=== PATIENT | female | born 1965 | race Caucasian/White ===

== ENCOUNTER → 2021-07-01 15:02 | Outpatient (BNVA) | payer OTHER, SELFPAY | PROVIDERS: PCP Nurse Practitioner Family; Visit Provider Psychiatry & Neurology Neurology | DX: G51.32 Clonic hemifacial spasm, left (principal); Z79.899 Other long term (current) drug therapy | CPT/HCPCS: 64612; J0585 ==

== ENCOUNTER → 2021-10-07 10:03 | Outpatient (BNVA) | payer OTHER, SELFPAY | PROVIDERS: Visit Provider Psychiatry & Neurology Neurology | DX: G51.32 Clonic hemifacial spasm, left (principal) | CPT/HCPCS: 64612; J0585 ==

== ENCOUNTER → 2022-01-10 13:07 | Outpatient (BNVA) | payer BC, SELFPAY | PROVIDERS: Visit Provider Psychiatry & Neurology Neurology | DX: G51.32 Clonic hemifacial spasm, left (principal) | CPT/HCPCS: 64612; J0585 ==

== ENCOUNTER → 2022-04-21 15:54 | Outpatient (BNVA) | payer BC, SELFPAY | PROVIDERS: Visit Provider Psychiatry & Neurology Neurology | DX: G51.32 Clonic hemifacial spasm, left (principal) | CPT/HCPCS: 64612; J0585 ==

== ENCOUNTER → 2022-07-31 15:27 | Outpatient (BNVA) | payer BC, SELFPAY | PROVIDERS: Visit Provider Psychiatry & Neurology Neurology | DX: G51.32 Clonic hemifacial spasm, left (principal) | CPT/HCPCS: 64612; J0585 ==

== ENCOUNTER 2022-11-19 15:11 | Outpatient (AMB) | payer BC, SELFPAY ==
--- NOTE | 2022-11-19 15:11 | A.OFFVIS_ITS ---
Intake Vital Signs 11/19/22 15:12 Height 5 ft 4 in Weight 143 lb BMI 24.5 BP 118/82 Blood Pressure Location Rt brachial Position Sitting Pulse 58 Pulse Source Pulse Oximeter Pulse Oximetry (%) 98 Oxygen Delivery Method Room Air Intake Visit Reasons: botox-CONFIRMED Intake Note: Patient presents for botox Allergies No Known Allergies Allergy (Verified 11/19/22 15:14) Medication List - Last Reconciled 11/19/22 by Courtney Locke MD cholecalciferol (vitamin D3) 10 mcg PO DAILY gabapentin 100 mg PO BEDTIME magnesium 200 mg PO DAILY meloxicam 15 mg PO DAILY onabotulinumtoxinA (Botox) 100 units IM [id number] HPI HPI Comments History of Present Illness Details ? 57y/o female comes for treatment with botox . ??? side effects were explained again and patient agreed to the procedure . - side effects include increased weakness , droopy eyelids weakness of facial muscles etc. ??? Botulinum toxin type A lot no C [id number] expiration Jan 2025 was diluted with 1 cc of normal saline at a concentration of 10units in 0.1cc. ??? Muscles injected - L lateral canthus 15 units ??? R lateral canthus 5 units ??? Left upper eyelid laterally - 2.5units ??? Left lateral lower eyelid - 10 units ??? Aryan manual plate filler 5 units each ??? Procerus 5 units ? Total used 40units ??? Discarded-60 units PFSH Medical History Chronic headaches Scoliosis Surgical History H/O: History of carpal tunnel surgery Family History Father Cancer HTN (hypertension) Hyperlipidemia Mother HTN (hypertension) Social History Household Members: Spouse and Family Household Members Other:: Spouse, child, dog Alcohol intake: current Alcohol intake frequency: a few times a week Alcohol type: wine Patient Tobacco Use Status: Never used Tobacco Physical Exam Vital Signs: Last Vital Signs Pulse 58 11/19/22 15:12 BP 118/82 11/19/22 15:12 Pulse Ox 98 11/19/22 15:12 Oxygen Delivery Method Room Air 11/19/22 15:12 BMI result Body Mass Index 24.5 HEENT Other: Mild left hemifacial spasm Office Procedures Botulinum toxin Injection 10133 - Facial Nerve Procedure code (CPT) selection complete Office Meds onabotulinumtoxinA Performing Provider: Courtney Locke MD Administered by: Courtney Locke MD on 11/19/22 15:34 Dose Route Admin Location Lot Number Expiration Date NDC Aircraft Engine Cylinder Mechanic 100 unit subcut [id number] 01/11/25 0929-3968-46 ALLERGAN/BOTOX Comments: see hpi Assessment & Plan Assessment & Plan (1) Hemifacial spasm of left side of face: Code(s): G51.32 - Clonic hemifacial spasm, left Plan Patient tolerated the procedure well. She will call with any side effects. Orders: Orders AMB Botulinum toxin Injection - Patient Supplied Today G51.32 - Clonic hemifacial spasm, left Coding Level of Care Code Est Pt Level 1 (59246) Diagnoses Hemifacial spasm of left side of face G51.32 CPT Codes Botox Injection - Botox 2: 04725 - Facial Nerve ([id number])
[2022-11-19 15:12] VITALS: BP 118/82; PULSE 58; O2SAT 98; BMI 24.5
== END 2022-11-19 15:41 | disposition home or self-care (01) ==
PROVIDERS: Visit Provider Psychiatry & Neurology Neurology
DX: G51.32 Clonic hemifacial spasm, left (principal)
CPT/HCPCS: 64612

== ENCOUNTER → 2022-11-19 15:11 | Outpatient (BNVA) | payer BC, SELFPAY | PROVIDERS: Visit Provider Psychiatry & Neurology Neurology | DX: G51.32 Clonic hemifacial spasm, left (principal) | CPT/HCPCS: 64612; 99211; J0585 ==

== ENCOUNTER 2023-03-02 07:27 | Outpatient (AMB) | payer OTHER, SELFPAY ==
--- NOTE | 2023-03-02 07:32 | A.OFFVIS_ITS ---
Intake Vital Signs 03/02/23 07:35 Weight 144 lb BP 140/92 H Blood Pressure Location Rt brachial Position Sitting Pulse 85 Pulse Source Pulse Oximeter Pulse Oximetry (%) 99 Oxygen Delivery Method Room Air Intake Visit Reasons: botox-Confirmed Intake Note: Botox injection, patient is asking for a refill on the Gabapentin. Application Developer Manager Required: No Allergies No Known Allergies Allergy (Verified 03/02/23 07:32) Medication List - Last Reconciled 03/02/23 by Courtney Locke MD cholecalciferol (vitamin D3) 10 mcg PO DAILY gabapentin 100 mg PO BEDTIME magnesium 200 mg PO DAILY meloxicam 15 mg PO DAILY onabotulinumtoxinA (Botox) 100 units IM [id number] HPI HPI Comments History of Present Illness Details ? 57y/o female comes for treatment with botox . ??? side effects were explained again and patient agreed to the procedure . - side effects include increased weakness , droopy eyelids weakness of facial muscles etc. ??? Botulinum toxin type A lot no C [id number] expiration June 2025 was diluted with 1 cc of normal saline at a concentration of 10units in 0.1cc. ??? Muscles injected - L lateral canthus 15 units ??? R lateral canthus 5 units ??? Left upper eyelid laterally - 2.5units ??? Left lateral lower eyelid - 10 units ? Procerus 5 units ? Total used 30units ??? Discarded-70 units PFSH Medical History Scoliosis Chronic headaches Surgical History History of carpal tunnel surgery H/O: Family History Father Cancer HTN (hypertension) Hyperlipidemia Mother HTN (hypertension) Social History Household Members: Spouse and Family Household Members Other:: Spouse, child, dog Alcohol intake: current Alcohol intake frequency: a few times a week Alcohol type: wine Patient Tobacco Use Status: Never used Tobacco Physical Exam Vital Signs: Last Vital Signs Pulse 85 03/02/23 07:35 BP 140/92 H 11/20/23 07:35 Pulse Ox 99 03/02/23 07:35 Oxygen Delivery Method Room Air 03/02/23 07:35 HEENT Other: Mild left hemifacial spasm Office Procedures Botulinum toxin Injection 31615 - Facial Nerve Procedure code (CPT) selection complete Office Meds onabotulinumtoxinA 100 unit solution for injection Performing Provider: Courtney Locke MD [place] [facility] [place] [facility] Administered by: Courtney Locke MD on 03/02/23 15:38 Dose Route Admin Location Dispensed Lot Number Expiration Date [facility] Flatbed Stitcher 40 unit subcut 100 units [id number] 06/11/25 6399-7657-70 ALLERGAN/BOTOX Comments: see hpi Assessment & Plan Assessment & Plan (1) Hemifacial spasm of left side of face: Code(s): G51.32 - Clonic hemifacial spasm, left Plan Patient tolerated the procedure well. She will call with any side effects. Orders: Orders AMB Botulinum toxin Injection Today G51.32 - Clonic hemifacial spasm, left Coding Level of Care Code Est Pt Level 1 (76878) Diagnoses Hemifacial spasm of left side of face G51.32 CPT Codes Botox Injection - Botox 2: 22487 - Facial Nerve ([id number])
[2023-03-02 07:35] VITALS: BP 140/92; PULSE 85; O2SAT 99
== END 2023-03-02 08:37 | disposition home or self-care (01) ==
PROVIDERS: Visit Provider Psychiatry & Neurology Neurology
DX: G51.32 Clonic hemifacial spasm, left (principal)
CPT/HCPCS: 64612

== ENCOUNTER → 2023-03-02 07:27 | Outpatient (BNVA) | payer OTHER, SELFPAY | PROVIDERS: Visit Provider Psychiatry & Neurology Neurology | DX: G51.32 Clonic hemifacial spasm, left (principal) | CPT/HCPCS: 64612; 99211; J0585 ==

== ENCOUNTER 2023-06-18 14:27 | Outpatient (AMB) | payer OTHER, SELFPAY ==
--- NOTE | 2023-06-18 14:49 | A.OFFVIS_ITS ---
Intake Vital Signs 06/18/23 14:50 Height 5 ft 4 in Weight 142 lb BMI 24.4 BP 112/62 Blood Pressure Location Rt brachial Position Sitting Respiration 16 Pulse 81 Pulse Source Pulse Oximeter Pulse Oximetry (%) 97 Oxygen Delivery Method Room Air Intake Visit Reasons: botox-CONF Intake Note: Pt presents to the office for Botox injections. Vascular Ultrasound Technologist Required: No Allergies No Known Allergies Allergy (Verified 06/18/23 14:49) Medication List - Last Reconciled 06/18/23 by Courtney Locke MD cholecalciferol (vitamin D3) 10 mcg PO DAILY gabapentin 100 mg PO BEDTIME magnesium 200 mg PO DAILY meloxicam 15 mg PO DAILY onabotulinumtoxinA (Botox) 100 units IM [id number] HPI HPI Comments History of Present Illness Details ? 57y/o female comes for treatment with botox . ??? side effects were explained again and patient agreed to the procedure . - side effects include increased weakness , droopy eyelids weakness of facial muscles etc. ??? Botulinum toxin type A lot no C [id number] expiration July 2025 was diluted with 1 cc of normal saline at a concentration of 10units in 0.1cc. ??? Muscles injected - L lateral canthus 15 units ismael corrgator 5 units each ??? R lateral canthus 5 units ??? Left upper eyelid laterally - 2.5units ??? Left lateral lower eyelid - 10 units ? Procerus 5 units ? Total used 40units ??? Discarded-60 units PFSH Medical History Scoliosis Chronic headaches Surgical History History of carpal tunnel surgery H/O: Family History Father Cancer HTN (hypertension) Hyperlipidemia Mother HTN (hypertension) Social History Household Members: Spouse and Family Household Members Other:: Spouse, child, dog Alcohol intake: current Alcohol intake frequency: a few times a week Alcohol type: wine Patient Tobacco Use Status: Never used Tobacco Physical Exam Vital Signs: Last Vital Signs Pulse 81 03/07/24 14:50 Resp 16 06/18/23 14:50 BP 112/62 06/18/23 14:50 Pulse Ox 97 06/18/23 14:50 Oxygen Delivery Method Room Air 06/18/23 14:50 BMI result Body Mass Index 24.4 HEENT Other: Mild left hemifacial spasm Office Procedures Botulinum toxin Injection 24838 - Facial Nerve Procedure code (CPT) selection complete Office Meds onabotulinumtoxinA 100 unit solution for injection Performing Provider: Courtney Locke MD Performing Location: [facility] [place] [facility] Administered by: Courtney Locke MD on 06/18/23 15:24 Dose Route Admin Location Dispensed Lot Number Expiration Date [facility] Alarm Technician 40 unit subcut 100 units [id number] 07/12/25 2879-0184-94 ALLERGAN/BOTOX Comments: see HPi Assessment & Plan Assessment & Plan (1) Hemifacial spasm of left side of face: Code(s): G51.32 - Clonic hemifacial spasm, left Plan Patient tolerated the procedure well. She will call with any side effects. Orders: Orders AMB Botulinum toxin Injection Today G51.32 - Clonic hemifacial spasm, left Coding Level of Care Code Est Pt Level 1 (98433) Diagnoses Hemifacial spasm of left side of face G51.32 CPT Codes Botox Injection - Botox 2: 46793 - Facial Nerve ([id number])
[2023-06-18 14:50] VITALS: BP 112/62; PULSE 81; RESP 16; O2SAT 97; BMI 24.4
== END 2023-06-18 15:32 | disposition home or self-care (01) ==
LOC: HO.HSMS 14:29
PROVIDERS: Visit Provider Psychiatry & Neurology Neurology
DX: G51.32 Clonic hemifacial spasm, left (principal)
CPT/HCPCS: 64612

== ENCOUNTER → 2023-06-18 14:27 | Outpatient (BNVA) | payer OTHER, SELFPAY | PROVIDERS: Visit Provider Psychiatry & Neurology Neurology | DX: G51.32 Clonic hemifacial spasm, left (principal); Z79.899 Other long term (current) drug therapy | CPT/HCPCS: 64612; 99211; J0585 ==

== ENCOUNTER 2023-09-24 15:28 | Outpatient (AMB) | payer OTHER, SELFPAY ==
[2023-09-24 15:34] VITALS: BP 122/70; PULSE 77; RESP 16; O2SAT 97; BMI 24.4
--- NOTE | 2023-09-24 15:34 | A.OFFVIS_ITS ---
Vital Signs 09/24/23 15:34 Height 5 ft 4 in Weight 142 lb BMI 24.4 BP 122/70 Blood Pressure Location Rt brachial Position Sitting Respiration 16 Pulse 77 Pulse Source Pulse Oximeter Pulse Oximetry (%) 97 Oxygen Delivery Method Room Air Intake Visit Reasons: Botox - Confirmed Intake Note: Pt presents to the office for Botox injections. Soft Work Wrapper Examiner Required: No Allergies No Known Allergies Allergy (Verified 09/24/23 15:34) Medication List - Last Reconciled 09/24/23 by Courtney Locke MD cholecalciferol (vitamin D3) 10 mcg PO DAILY gabapentin 100 mg PO BEDTIME magnesium 200 mg PO DAILY meloxicam 15 mg PO DAILY onabotulinumtoxinA (Botox) 100 units IM [id number] HPI Comments Details: ? 58y/o female comes for treatment with botox . ??? side effects were explained again and patient agreed to the procedure . - side effects include increased weakness , droopy eyelids weakness of facial muscles etc. ??? Botulinum toxin type A lot no C [id number] expiration September 2025 was diluted with 1 cc of normal saline at a concentration of 10units in 0.1cc. ??? Muscles injected - L lateral canthus 20 units ??? R lateral canthus 5 units ? Left lateral lower eyelid - 10 units ? Procerus 5 units ? Total used 40units ??? Discarded-60 units [facility] Medical History (Updated 09/24/23 @ 16:08 by Courtney Locke MD) Numbness and tingling in left hand Scoliosis Chronic headaches Surgical History History of carpal tunnel surgery H/O: Family History Father Cancer HTN (hypertension) Hyperlipidemia Mother HTN (hypertension) Social History Household Members: Spouse and Family Household Members Other:: Spouse, child, dog Alcohol intake: current Alcohol intake frequency: a few times a week Alcohol type: wine Patient Tobacco Use Status: Never used Tobacco Physical Exam Vital Signs: Last Vital Signs Pulse 77 09/24/23 15:34 Resp 16 09/24/23 15:34 BP 122/70 09/24/23 15:34 Pulse Ox 97 09/24/23 15:34 Oxygen Delivery Method Room Air 09/24/23 15:34 BMI result Body Mass Index 24.4 HEENT Other: Mild left hemifacial spasm Office Procedures Botulinum toxin Injection 81522 - Facial Nerve Procedure code (CPT) selection complete Office Meds onabotulinumtoxinA 100 unit solution for injection Performing Provider: Courtney Locke MD Performing [place] [facility] [place] [facility] Administered by: Courtney Locke MD on 09/24/23 16:05 Dose Route Admin Location Dispensed Lot Number Expiration Date [facility] Hoop Flaring Machine Operator Helper 100 unit subcut 100 units [id number] 09/11/25 9778-7323-68 ALLERGAN/BOTOX Comments: see hpi Assessment & Plan Assessment & Plan (1) Hemifacial spasm of left side of face: Code(s): G51.32 - Clonic hemifacial spasm, left Category: Medical (2) Numbness and tingling in left hand: Code(s): R20.0 - Anesthesia of skin; R20.2 - Paresthesia of skin Category: Medical Plan Patient tolerated the procedure well. She will call with any side effects. EMG NCS Left hand Orders: Orders AMB Botulinum toxin Injection Today G51.32 - Clonic hemifacial spasm, left NE nerve conduction velocity Today R20.0 - Anesthesia of skin, R20.2 - Paresthesia of skin NE electromyogram (EMG) Today R20.0 - Anesthesia of skin, R20.2 - Paresthesia of skin Coding Level of Care Code Est Pt Level 1 (12587) Diagnoses Hemifacial spasm of left side of face G51.32 Numbness and tingling in left hand R20.0; R20.2 CPT Codes Botox Injection - Botox 2: 37895 - Facial Nerve ([id number])
== END 2023-09-24 16:13 | disposition home or self-care (01) ==
PROVIDERS: Visit Provider Psychiatry & Neurology Neurology
DX: G51.32 Clonic hemifacial spasm, left (principal)
CPT/HCPCS: 64612

== ENCOUNTER → 2023-09-24 15:28 | Outpatient (BNVA) | payer OTHER, SELFPAY | PROVIDERS: Visit Provider Psychiatry & Neurology Neurology | DX: G51.32 Clonic hemifacial spasm, left (principal); R20.0 Anesthesia of skin; R20.2 Paresthesia of skin | CPT/HCPCS: 64612; 99211; J0585 ==

== ENCOUNTER 2024-01-05 15:30 | Outpatient (AMB) | payer OTHER, SELFPAY ==
--- NOTE | 2024-01-05 15:35 | A.OFFVIS_ITS ---
Vital Signs 01/05/24 15:36 Height 5 ft 4 in Weight 145 lb BMI 24.9 BP 128/70 Blood Pressure Location Rt brachial Position Sitting Respiration 16 Pulse 70 Pulse Source Pulse Oximeter Pulse Oximetry (%) 98 Oxygen Delivery Method Room Air Intake Visit Reasons: Botox - LVM with appt Intake Note: Pt presents for Botox injections for left hemifacial spasms. Collar Setter Overlock Required: No Allergies No Known Allergies Allergy (Verified 01/05/24 15:36) Medication List - Last Reconciled 01/06/24 by Courtney Locke MD cholecalciferol (vitamin D3) 10 mcg PO DAILY gabapentin 100 mg PO BEDTIME magnesium 200 mg PO DAILY meloxicam 15 mg PO DAILY onabotulinumtoxinA (Botox) 100 units IM [id number] HPI Comments Details: ? 58y/o female comes for treatment with botox . ??? side effects were explained again and patient agreed to the procedure . - side effects include increased weakness , droopy eyelids weakness of facial muscles etc. ??? Botulinum toxin type A lot no C [id number] expiration Jan 2026 was diluted with 1 cc of normal saline at a concentration of 10units in 0.1cc. ??? Muscles injected - L lateral canthus 20 units ??? R lateral canthus 5 units ? Left lateral lower eyelid - 10 units ? Procerus 5 units ? Total used 40units ??? Discarded-60 units PFSH Medical History Numbness and tingling in left hand Scoliosis Chronic headaches Surgical History History of carpal tunnel surgery H/O: Family History Father Cancer HTN (hypertension) Hyperlipidemia Mother HTN (hypertension) Social History Household Members: Spouse and Family Household Members Other:: Spouse, child, dog Alcohol intake: current Alcohol intake frequency: a few times a week Alcohol type: wine Patient Tobacco Use Status: Never used Tobacco Physical Exam Vital Signs: Last Vital Signs Pulse 70 01/05/24 15:36 Resp 16 01/05/24 15:36 BP 128/70 01/05/24 15:36 Pulse Ox 98 01/05/24 15:36 Oxygen Delivery Method Room Air 01/05/24 15:36 BMI result Body Mass Index 24.9 HEENT Other: Mild left hemifacial spasm Office Procedures Botulinum toxin Injection 29402 - Facial Nerve Procedure code (CPT) selection complete Office Meds onabotulinumtoxinA 100 unit solution for injection Performing Provider: Courtney Locke MD [place] [facility] [place] [facility] Administered by: Courtney Locke MD on 01/06/24 08:36 Dose Route Admin Location Dispensed Lot Number Expiration Date [facility] Resort Host 40 unit subcut 100 units [id number] 01/11/26 4238-7982-67 ALLERGAN/BOTOX Comments: see HPI Assessment & Plan Assessment & Plan (1) Hemifacial spasm of left side of face: Code(s): G51.32 - Clonic hemifacial spasm, left Category: Medical Plan Patient tolerated the procedure well. She will call with any side effects. Orders: Orders AMB Botulinum toxin Injection 01/05/24 G51.32 - Clonic hemifacial spasm, left Medications: New onabotulinumtoxinA 100 units subcut ONCE 1 ea 0RF hemifacial spasm G51.32 - Clonic hemifacial spasm, left Coding Level of Care Code Est Pt Level 1 (91605) Diagnoses Hemifacial spasm of left side of face G51.32 CPT Codes Botox Injection - Botox 2: 66100 - Facial Nerve ([id number])
[2024-01-05 15:36] VITALS: BP 128/70; PULSE 70; RESP 16; O2SAT 98; BMI 24.9
== END 2024-01-05 16:03 | disposition home or self-care (01) ==
PROVIDERS: Visit Provider Psychiatry & Neurology Neurology
DX: G51.32 Clonic hemifacial spasm, left (principal)
CPT/HCPCS: 64612

== ENCOUNTER → 2024-01-05 15:30 | Outpatient (BNVA) | payer OTHER, SELFPAY | PROVIDERS: Visit Provider Psychiatry & Neurology Neurology | DX: G51.32 Clonic hemifacial spasm, left (principal) | CPT/HCPCS: 64612; 99211; J0585 ==

== ENCOUNTER 2024-05-03 08:01 | Outpatient (AMB) | payer OTHER, SELFPAY ==
--- OUTSIDE RECORDS SUMMARY | 2024-05-03 08:04 | XMS_ITS | Continuity of Care Document ---
Author Organization [facility] [place] Address [address] [place] [address]- Care Team Providers Care Process Safety Specialist Name Role Phone Oswaldo APONTE, Jt Vickers Primary Care Physi [facility] [place] [facility] [place] - 04/08/24 [facility] [address], [place] [address] Encounter Type: Triage Allergies, Adverse Reactions, Alerts No Known Allergies Immunizations Given and Recorded Vaccine Date Status Refusal Reason rabies vaccine, human diploid cell 03/03/24 Given rabies vaccine, human diploid cell 02/25/24 Given rabies vaccine, human diploid cell 02/21/24 Given rabies vaccine, human diploid cell 02/17/24 Given Rabies Immune Globulin, Human 1 02/17/24 Given pneumococcal 20-valent conjugate vaccine 05/14/22 Given influenza virus vaccine, inactivated 05/14/22 Give n influenza virus vaccine, inactivated 01/15/20 Timmy rded SARS-CoV-2 mRNA ([id number]) vax 10/30/21 Recorded SARS-CoV-2 (COVID-19) mRNA BNT-162b2 vac 02/17/21 Recorded SARS-CoV-2 (COVID-19) mRNA BNT-162b2 vac 07/13/20 Recorded SARS-CoV-2 (COVID-19) mRNA BNT-162b2 vac 06/21/20 Recorded tetanus/diphtheria/pertussis, acel(Tdap) 2 03/24/18 Recorded tetanus/diphtheria/pertussis, acel(Tdap) 3 01/24/08 Recorded 1Result Comment: L arm/ thigh split into 2ml and 2.5 mL 2Result Comment: Unit: Unknown Automobile Body Worker: [employer] 3Result Comment: Unit: Unknown Medications estradiol-norethindrone 0.05 mg-0.14 mg/24 hours transdermal film, extended release See Instructions, 1 patch apply to skin twice per week, # 8 patch, 6 Refills, Maintenance, 07/16/23 8:40:00 AM EDT, [facility]/pharmacy #[id number], Partial fill upon patient request if the prescription is for a schedule II opioid drug., 1 patch; apply to skin twice per week, 162.56, cm, 07/16/23 8:07:00 EDT, Height Start Date: 07/16/23 Status: Ordered Quantity: 8.0 Unit: patch Repeat number: 7 meloxicam 15 mg oral tablet 1 tablet = 15 mg, By Mouth, Daily, 0 Refills, Maintenance, 09/23/23 8:25:00 AM EDT, Partial fill upon patient request if the prescription is for a schedule II opioid drug. Start Date: 09/23/23 Status: Ordered Repeat number: 1 Misc Rx Refills 0, Maintenance, 09/23/23 8:25:00 AM EDT, Supply Start Date: 09/23/23 Status: Ordered Repeat number: 1 Misc Rx Refills 0, Maintenance, 08/01/21 10:46:00 AM EDT, Supply Start Date: 08/01/21 Status: Ordered Repeat number: 1 [employer] By Mouth, 2 times a day, 0 Refills, Maintenance, 09/23/23 8:25:00 AM EDT, Partial fill upon patient request if the prescription is for a schedule II opioid drug. Start Date: 09/23/23 Status: Ordered Repeat number: 1 Problem List Condition Confirmation Course Effective Dates Status H ealth Status Informant Cyst of ovary Confirmed Active Hemifacial spasm Confirmed Active Right hip pain Confirmed Active Menopausal symptoms Confirmed Active Pelvic pain Confirmed Active Right knee pain Confirmed Active Perimenopause Confirmed Active PMB (postmenopausal bleeding) Confirmed Active Scoliosis Confirmed Active TMJ syndrome Confirmed Active Social History Social History Type Response Smoking Status Never (less than 100 in lifetime) entered on: 08/20/18 Sex Sex Representation Female (finding) Patient Care team information Care Team Personnel Name: Oswaldo APONTE, Jt Vickers Position: S Resident Member Role: PCP Address: [address], [address] [place] [address], [place] [address]- [place] Telecom: Care Team Related Persons Name: COLUMBA MEDINA Insurance Providers Guarantor name: IOANA [facility] Plan Information #: 1 Payer: [facility] Member Number: NA Policy Number: NA Group Number: NA
--- NOTE | 2024-05-03 08:05 | MHC.OFFVIS ---
Vital Signs 05/03/24 08:05 Height 5 ft 4 in Intake Visit Reasons: BOTOX Intake Note: Patient presents for botox injection Allergies No Known Allergies Allergy (Verified 05/03/24 08:09) Medication List - Last Reconciled 05/03/24 by Courtney Locke MD cholecalciferol (vitamin D3) 10 mcg PO DAILY estradiol-norethindrone acet 0.05-0.14 mg/24 hr (CombiPatch) 1 patch transdermal 2XW magnesium 200 mg PO DAILY meloxicam 15 mg PO DAILY onabotulinumtoxinA (Botox) 100 units IM [id number] HPI Comments Details: ? 58y/o female comes for treatment with botox .Increase in spasm in her left side of face since last visit. ??? side effects were explained again and patient agreed to the procedure . - side effects include increased weakness , droopy eyelids weakness of facial muscles etc. ??? Botulinum toxin type A lot no [id number] expiration June 2026 was diluted with 1 cc of normal saline at a concentration of 10units in 0.1cc. ??? Muscles injected - L lateral canthus 20 units ??? R lateral canthus 10 units ? Left lateral lower eyelid - 15 units Left medieal lower eyelid 5 units ? Procerus 5 units ? Total used 55units ??? Discarded-45 units PFSH Medical History Numbness and tingling in left hand Scoliosis Chronic headaches Surgical History History of carpal tunnel surgery H/O: Family History Father Cancer HTN (hypertension) Hyperlipidemia Mother HTN (hypertension) Social History Household Members: Spouse and Family Household Members Other:: Spouse, child, dog Alcohol intake: current Alcohol intake frequency: a few times a week Alcohol type: wine Patient Tobacco Use Status: Never used Tobacco Physical Exam HEENT Other: Mild left hemifacial spasm Office Procedures Botulinum toxin Injection 85387 - Facial Nerve Procedure code (CPT) selection complete Office Meds onabotulinumtoxinA 100 unit solution for injection Performing Provider: Courtney Locke MD [place] [facility] [place] [facility] Administered by: Courtney Locke MD on 05/03/24 08:29 Dose Route Admin Location Dispensed Lot Number Expiration Date NDC Team Manager 55 unit subcut 100 units [id number] 06/11/26 8199-5547-01 ALLERGAN/BOTOX Comments: see hpi Assessment & Plan Assessment & Plan (1) Hemifacial spasm of left side of face: Code(s): G51.32 - Clonic hemifacial spasm, left Category: Medical Plan Patient tolerated the procedure well. She will call with any side effects. MRI brain with jaylon for worsening of her facial spasm refer to Dr. Posey for botox Orders: Orders Comprehensive Met. Panel Today G51.32 - Clonic hemifacial spasm, left AMB Botulinum toxin Injection Today G51.32 - Clonic hemifacial spasm, left Complete Blood Count Auto Diff Today G51.32 - Clonic hemifacial spasm, left MR head/brain wo/w con Today G51.32 - Clonic hemifacial spasm, left Referrals Ophthalmology Referral G51.32 - Clonic hemifacial spasm, left Medications: New onabotulinumtoxinA 100 units subcut ONCE 1 ea 0RF hemifacial spasm G51.32 - Clonic hemifacial spasm, left Coding Level of Care Code Est Pt Level 1 (46497) Diagnoses Hemifacial spasm of left side of face G51.32 CPT Codes Botox Injection - Botox 2: 06165 - Facial Nerve ([id number])
== END 2024-05-03 08:32 | disposition home or self-care (01) ==
PROVIDERS: Visit Provider Psychiatry & Neurology Neurology
DX: G51.32 Clonic hemifacial spasm, left (principal)
CPT/HCPCS: 64612

== ENCOUNTER → 2024-05-03 08:01 | Outpatient (BNVA) | payer OTHER, SELFPAY | PROVIDERS: Visit Provider Psychiatry & Neurology Neurology | DX: G51.32 Clonic hemifacial spasm, left (principal) | CPT/HCPCS: 64612; 99211; J0585 ==

== ENCOUNTER 2024-08-02 15:03 | Outpatient (AMB) | payer OTHER, SELFPAY ==
--- NOTE | 2024-08-02 15:04 | MHC.OFFVIS ---
Vital Signs 08/02/24 15:05 Height 5 ft 4 in Weight 150 lb BMI 25.7 Intake Visit Reasons: Botox Intake Note: Patient presents for follow up MRI 05/30/24;Labs 05/11/24 Allergies No Known Allergies Allergy (Verified 08/02/24 15:09) Medication List - Last Reconciled 08/02/24 by Courtney Locke MD magnesium 200 mg PO DAILY meloxicam 15 mg PO DAILY hunwa-1x-ist-epa-fish oil 1,000-1,400 mg caps PO onabotulinumtoxinA (Botox) 100 units IM [id number] HPI Comments Details: ? 58y/o female comes for treatment with botox .Increase in spasm in her left side of face since last visit. ??? side effects were explained again and patient agreed to the procedure . - side effects include increased weakness , droopy eyelids weakness of facial muscles etc. ??? Botulinum toxin type A lot no [id number] expiration August 2026 was diluted with 1 cc of normal saline at a concentration of 10units in 0.1cc. ??? Muscles injected - L lateral canthus 20 units ??? R lateral canthus 10 units ? Left lateral lower eyelid - 15 units Left medieal lower eyelid 5 units ? Procerus 5 units ? Total used 55units ??? Discarded-45 units PFSH Medical History Numbness and tingling in left hand Scoliosis Chronic headaches Surgical History History of carpal tunnel surgery H/O: Family History Father Cancer HTN (hypertension) Hyperlipidemia Mother HTN (hypertension) Social History Household Members: Spouse and Family Household Members Other:: Spouse, child, dog Alcohol intake: current Alcohol intake frequency: a few times a week Alcohol type: wine Patient Tobacco Use Status: Never used Tobacco Physical Exam Vital Signs: BMI result Body Mass Index 25.7 HEENT Other: Mild left hemifacial spasm Office Procedures Botulinum toxin Injection 17192 - Facial Nerve Procedure code (CPT) selection complete Office Meds onabotulinumtoxinA 100 unit solution for injection Performing Provider: Courtney Locke MD Performing Location: [facility] Administered by: Courtney Locke MD on 08/02/24 15:32 Dose Route Admin Location Dispensed Lot Number Expiration Date NDC Circuit Breaker Supervisor 50 unit subcut 100 units [id number] ALLERGAN/BOTOX Comments: see hpi Assessment & Plan Assessment & Plan (1) Hemifacial spasm of left side of face: Code(s): G51.32 - Clonic hemifacial spasm, left Category: Medical Plan Patient tolerated the procedure well. She will call with any side effects. MRI brain with jaylon - vascular loop around left trigeminal nerve will consider [facility] for botox Orders: Orders AMB Botulinum toxin Injection Today G51.32 - Clonic hemifacial spasm, left Medications: New onabotulinumtoxinA 100 units subcut ONCE 1 ea 0RF hemifacial spasm G51.32 - Clonic hemifacial spasm, left Coding Level of Care Code Est Pt Level 1 (15103) Diagnoses Hemifacial spasm of left side of face G51.32 CPT Codes Botox Injection - Botox 2: 30679 - Facial Nerve ([id number])
[2024-08-02 15:05] VITALS: BMI 25.7
== END 2024-08-02 15:43 | disposition home or self-care (01) ==
LOC: HO.HSMS 15:04
PROVIDERS: Visit Provider Psychiatry & Neurology Neurology
DX: G51.32 Clonic hemifacial spasm, left (principal)
CPT/HCPCS: 64612

== ENCOUNTER → 2024-08-02 15:03 | Outpatient (BNVA) | payer OTHER, SELFPAY | PROVIDERS: Visit Provider Psychiatry & Neurology Neurology | DX: G51.32 Clonic hemifacial spasm, left (principal) | CPT/HCPCS: 64612; 99211; J0585 ==

== ENCOUNTER 2024-11-01 13:49 | Outpatient (AMB) | payer OTHER, SELFPAY ==
--- OUTSIDE RECORDS SUMMARY | 2024-10-29 23:59 | XMS_ITS | Continuity of Care Document ---
Author Organization [facility] Address [address] [place] [address]- Care Team Providers Care Merchandising Lead Name Role Phone Bushra FAJARDO, Jossy Primary Care Physician [id number] Date(s): 09/22/24 - 10/29/24 [facility] [address] [address] Attending Physician: Jossy Tomlinson NP Admitting Physician: Jossy Tomlinson NP Referring Physician: Jossy Tomlinson NP Encounter Type: Pre Office Visit Allergies, Adverse Reactions, Alerts No Known Allergies [...] vaccine, inactivated 01/15/20 Timmy rded SARS-CoV-2 mRNA (hwwweue-utcl-zbitu) vax 10/30/21 Recorded SARS-CoV-2 (COVID-19) mRNA BNT-162b2 vac 02/17/21 Recorded SARS-CoV-2 (COVID-19) mRNA BNT-162b2 vac 07/13/20 Recorded SARS-CoV-2 (COVID-19) mRNA BNT-162b2 vac 06/21/20 Recorded tetanus/diphtheria/pertussis, acel(Tdap) 2 03/24/18 Recorded tetanus/diphtheria/pertussis, acel(Tdap) 3 01/24/08 Recorded 1Result Comment: L arm/ thigh split into 2ml and 2.5 mL 2Result Comment: Unit: Unknown Principal Technical Specialist: [employer] 3Result Comment: Unit: Unknown Medications estradiol-norethindrone 0.05 mg-0.14 mg/24 hours transdermal film, extended release See Instructions, 1 patch apply to skin twice per week, # 8 patch, 11 Refills, Maintenance, 254:52:00 PM EST, [facility]/pharmacy #[id number], Partial fill upon patient request if the prescription is for a schedule II opioid drug., 1 patch; apply to skin twice per week, 162, cm, 03/11/24 9:10:00 EST, Height, 65, kg, 03/03/24 18:55:00 EST, Dry Weight Start Date: 05/12/24 Status: Ordered Quantity: 8.0 Unit: patch Repeat number: 12 meloxicam 15 mg oral tablet 1 tablet [...] Date: 08/01/21 Status: Ordered Repeat number: 1 [employer] By Mouth, 2 times a day, [...] Care team information Care Team Personnel Name: Jossy Tomlinson NP Position: [facility] Physician - Hospital Medicine Member Role: PCP Address: [address] [place] [address]- Telecom: Care Team Related Persons Name: COLUMBA MEDINA Insurance Providers Guarantor name: IO[employer] [facility] [employer] [facility] Information #: 1 Payer: [facility] FF NON P HMO P Payer Identifier: NA Member Number: [id number] Group Number: [id number] Subscriber Identifier: [id number] Relationship to Subscriber: self Coverage Type: Other Private Insurance Coverage Verification Date: NA Telecom: NA Address:
--- NOTE | 2024-11-01 13:50 | A.OFFVIS_ITS ---
Vital Signs 11/01/24 13:51 Height 5 ft 4 in Weight 143 lb BMI 24.5 BP 110/68 Blood Pressure Location Lt brachial Position Sitting Pulse 58 Pulse Source Pulse Oximeter Pulse Oximetry (%) 97 Oxygen Delivery Method Room Air Intake Visit Reasons: Botox Personal Lines Insurance Advisor Required: No Accompanied by: Self / Same As Patient Allergies No Known Allergies Allergy (Verified 11/01/24 13:55) Medication List - Last Reconciled 11/01/24 by Courtney Locke MD magnesium 200 mg PO DAILY meloxicam 15 mg PO DAILY qfjvq-2z-gkm-epa-fish oil 1,000-1,400 mg caps PO onabotulinumtoxinA (Botox) 100 units IM [id number] HPI Comments Details: ? 59y/o female comes for treatment with botox .Increase in spasm in her left side of face since last visit. ??? side effects were explained again and patient agreed to the procedure . - side effects include increased weakness , droopy eyelids weakness of facial muscles etc. ??? Botulinum toxin type A lot no [id number] expiration Jan 2027 was diluted with 1 cc of normal saline at a concentration of 10units in 0.1cc. ??? Muscles injected - L lateral canthus 20 units ??? R lateral canthus 10 units ? Left lateral lower eyelid - 15 units Left medieal lower eyelid 5 units ? Procerus 5 units ? Total used 55units ??? Discarded-45 units PFSH Medical History Numbness and tingling in left hand Scoliosis Chronic headaches Surgical History History of carpal tunnel surgery H/O: Family History Father Cancer HTN (hypertension) Hyperlipidemia Mother HTN (hypertension) Social History Household Members: Spouse and Family Household Members Other:: Spouse, child, dog Alcohol intake: current Alcohol intake frequency: a few times a week Alcohol type: wine Patient Tobacco Use Status: Never used Tobacco Physical Exam Vital Signs: Last Vital Signs Pulse 58 11/01/24 13:51 BP 110/68 11/01/24 13:51 Pulse Ox 97 11/01/24 13:51 Oxygen Delivery Method Room Air 11/01/24 13:51 BMI result Body Mass Index 24.5 HEENT Other: Mild left hemifacial spasm Office Procedures Botulinum toxin Injection 71779 - Facial Nerve Procedure code (CPT) selection complete Office Meds onabotulinumtoxinA 100 unit solution for injection Performing Provider: Courtney Locke MD Performing Location: [facility] Administered by: Courtney Locke MD on 11/01/24 14:29 Dose Route Admin Location Dispensed Lot Number Expiration Date [facility] Manager People 55 unit subcut 100 units [id number] ALLERGAN/ BOTOX Total Dispensed Waste 100 units 45 % Comments: see hpi Assessment & Plan Assessment & Plan (1) Hemifacial spasm of left side of face: Code(s): G51.32 - Clonic hemifacial spasm, left Category: Medical Plan Patient tolerated the procedure well. She will call with any side effects. MRI brain with jaylon - vascular loop around left trigeminal nerve - will consider Neurosurgery ref if patient does not have agood response to Botox Orders: Orders AMB Botulinum toxin Injection Today G51.32 - Clonic hemifacial spasm, left Coding Level of Care Code Est Pt Level 1 (48530) Diagnoses Hemifacial spasm of left side of face G51.32 CPT Codes Botox Injection - Botox 2: 61568 - Facial Nerve ([id number])
[2024-11-01 13:51] VITALS: BP 110/68; PULSE 58; O2SAT 97; BMI 24.5
--- OUTSIDE RECORDS SUMMARY | 2024-11-01 15:03 | XMS_ITS | Data Portability ---
Author Organization [place] [facility] [employer] Address [address] [place] [address] Assessment Encounter Date Assessment Date Assessment LastModified by Organization Details LastModified Time 09/07/2024 09/07/2024 Assessment - Hemifacial spasm, currently under the care of a neurologist. - Severe scoliosis, monitored every 6 months, with consideration for spinal fusion and celeste implantation. - Heart palpitations and dyspnea, recommended for further evaluation with a nuclear stress test and Holter monitor to rule out coronary artery disease and arrhythmias. - Possible reactive airway contributing to mucus accumulation, potentially related to past COVID infections or allergies. - Perimenopause, with recent cessation of hormone replacement therapy and resumption of menstrual periods. Plan - Schedule a nuclear stress test to assess heart function and potential coronary artery disease, as it is more sensitive for women. - Arrange for a Holter monitor or ZioPak to be worn for at least a week to monitor for any arrhythmias. - Conduct blood work, including cholesterol levels, blood counts, and iron levels, to investigate potential causes of symptoms such as fatigue and palpitations. - Administer a shingles vaccination to prevent shingles, as it is recommended for individuals in this age group. - Administer a seasonal flu shot to protect against influenza, especially given the previous bad flu season. - Plan a follow-up appointment in approximately 6 to 8 weeks to review the results of the tests, including the sleep study and ZioPak or Holter monitor. - Consider a home sleep test to evaluate for sleep apnea, given the symptoms of snoring and fatigue. - Trial the use of Flonase to address nighttime mucus accumulation and potential reactive airway issues. Appointments - Appointment for a nuclear stress test (date to be scheduled). - Appointment for Holter monitor placement (date to be scheduled). - Follow-up appointment for annual physical and test results review in approximately 6 to 8 weeks (date to be scheduled). 45 minutes spent on date of service on chart review, direct time spent with patient, and documentation of clinical encounter. [email or web address] Not available 09/07/2024 14:13:45 Plan of Treatment Reminders Order Date Submit Date Provider Last Modified By Organization Details Last Modified Time Details Appointments Annual Exam 2024 03:00P M Jossy Tomlinson, DNP Not available Not available Not available Lab TSH + free T4, serum 2024 025 [facility] [address] [place], [address], 09/17/2024 06:07:38 magnesium , serum or plasma 2024 025 [facility], [address] [place], [address], 09/17/2024 06:07:40 CMP, serum or plasma 2024 025 [facility], [address] [place], [address], 09/17/2024 06:07:39 lipid panel, serum 2024 025 [facility], [address], [place], [address], 09/17/2024 06:07:39 CBC w/ auto diff 2024 025 [facility], [address] [place], [address], 09/17/2024 06:07:38 iron + TIBC + ferritin, serum 2024 025 [facility], [address] [place], [address], 09/17/2024 06:07:37 Referral None recorded. Procedures holter monitor placement (PROC) - 10 ZIO XT 2024 025 [email or web address] [facility], [place], [address], 09/22/2024 10:28:50 treadmill nuclear stress test (PROC) [address] [facility], [address] [place], [address], 09/22/2024 10:28:13 Surgeries None recorded. Imaging MAMMO, screening , digital, bilateral [address] [facility], [address], [place], [address], 09/22/2024 10:27:16 Medication Orders None recorded. Patient TargetsNo targets recorded. Patient InstructionsNo instructions recorded. Reason for Referral None Reported. Results Created Date Observation Date Name Description Value Unit Range Abnormal Flag Note LastModifiedBy Organization Detail LastModifiedTime 09/16/1909/16/2024 FE+TI BC+FE R iron bind.cap.(TI BC) 258 ug/dL 250-45 0 normal Not Available [facility] ([facility]) [address] [place], [address], 09/17/2024 06:07:37 09/16/19 25 09/16/2024 FE+TI BC+FE R UIBC 159 ug/dL 131-42 5 normal Not Available [facility] ([facility]) [address] [place], [address], 09/17/2024 06:07:37 09/16/19 25 09/16/2024 FE+TI BC+FE R iron 99 ug/dL 27-159 normal Not Available [facility] ([facility]) [address] [place], [address], 09/17/2024 06:07:37 09/16/19 25 09/16/2024 FE+TI BC+FE R iron saturation 38 % 15-55 normal Not Available [facility] ([facility]) [address] [place], [address], 09/17/2024 06:07:37 09/16/19 25 09/16/2024 FE+TI BC+FE R ferritin 47 NG/mL 15-150 normal Not Available [facility] ([facility]) [address] [place], [address], 09/17/2024 06:07:37 09/16/19 25 09/16/2024 TSH+F REE T4 TSH 3.300 uIU/m L 0.450- 4.500 normal Not Available [facility] ([facility]) [address] [place], [address], 09/17/2024 06:07:38 09/16/19 25 09/16/2024 TSH+F REE T4 T4,free(dire ct) 1.38 NG/dL 0.82-1 .77 normal Not Available [facility] ([facility]) [address] [place], [address], 09/17/2024 06:07:38 09/16/19 25 09/15/2024 CBC WITH DIFFE RENTI AL/PL ATELE T WBC 5.5 x10e3 /uL 3.4-10 .8 normal Not Available [facility] ([facility]) [address] [place], [address], 09/17/2024 06:07:38 09/16/19 25 09/15/2024 CBC WITH DIFFE RENTI AL/PL ATELE T RBC 4.34 x10e6 /uL 3.77-5 .28 normal Not Available [facility] ([facility]) [address] [place], [address], 09/17/2024 06:07:38 09/16/19 25 09/15/2024 CBC WITH DIFFE RENTI AL/PL ATELE T hemoglobin 13.3 g/dL 11.1-1 5.9 normal Not Available [facility] ([facility]) [address] [place], [address], 09/17/2024 06:07:38 09/16/19 25 09/15/2024 CBC WITH DIFFE RENTI AL/PL ATELE T hematocrit 40.7 % 34.0-4 6.6 normal Not Available [facility] ([facility]) [address] [facility], [place], [address], 09/17/2024 06:07:38 09/16/19 25 09/15/2024 CBC WITH DIFFE RENTI AL/PL ATELE T MCV 94 fL 79-97 normal Not Available [facility] ([facility]) [address] [facility], [place], [address], 09/17/2024 06:07:38 09/16/19 25 09/15/2024 CBC WITH DIFFE RENTI AL/PL ATELE T MCH 30.6 pg 26.6-3 3.0 normal Not Available [facility] ([facility]) [address] [facility], [place], [address], 09/17/2024 06:07:38 09/16/19 25 09/15/2024 CBC WITH DIFFE RENTI AL/PL ATELE T MCHC 32.7 g/dL 31.5-3 5.7 normal Not Available [facility] ([facility]) [address] [place], [address], 09/17/2024 06:07:38 09/16/19 25 09/15/2024 CBC WITH DIFFE RENTI AL/PL ATELE T RDW 13.0 % 11.7-1 5.4 Not Available [facility] ([facility]) [address] [place], [address], 09/17/2024 06:07:38 09/16/19 25 09/15/2024 CBC WITH DIFFE RENTI AL/PL ATELE T platelets 195 x10e3 /uL 150-45 0 normal Not Available [facility] ([facility]) [address] [place], [address], 09/17/2024 06:07:38 09/16/19 25 09/15/2024 CBC WITH DIFFE RENTI AL/PL ATELE T neutrophils 57 % not estab. normal Not Available [facility] ([facility]) [address] [facility], [place], [address], 09/17/2024 06:07:38 09/16/19 25 09/15/2024 CBC WITH DIFFE RENTI AL/PL ATELE T lymphs 31 % not estab. normal Not Available [facility] ([facility]) [address] [facility], [place], [address], 09/17/2024 06:07:38 09/16/19 25 09/15/2024 CBC WITH DIFFE RENTI AL/PL ATELE T monocytes 7 % not estab. normal Not Available [facility] ([facility]) [address] [facility], [place], [address], 09/17/2024 06:07:38 09/16/19 25 09/15/2024 CBC WITH DIFFE RENTI AL/PL ATELE T eos 4 % not estab. normal Not Available [facility] ([facility]) [address] [facility], [place], [address], 09/17/2024 06:07:38 09/16/19 25 09/15/2024 CBC WITH DIFFE RENTI AL/PL ATELE T basos 1 % not estab. normal Not Available [facility] ([facility]) [address] [facility], [place], [address], 09/17/2024 06:07:38 09/16/19 25 09/15/2024 CBC WITH DIFFE RENTI AL/PL ATELE T immature cells CHRONOMETER REPAIRER Not Available [facility] ([facility]) [address] [facility], [place], [address], 09/17/2024 06:07:38 09/16/19 25 09/15/2024 CBC WITH DIFFE RENTI AL/PL ATELE T neutrophils (absolute) 3.2 x10e3 /uL 1.4-7. 0 normal Not Available [facility] ([facility]) [address] [facility], [place], [address], 09/17/2024 06:07:38 09/16/19 25 09/15/2024 CBC WITH DIFFE RENTI AL/PL ATELE T lymphs (absolute) 1.7 x10e3 /uL 0.7-3. 1 normal Not Available [facility] ([facility]) [address] [facility], [place], [address], 09/17/2024 06:07:38 09/16/19 25 09/15/2024 CBC WITH DIFFE RENTI AL/PL ATELE T monocytes(ab solute) 0.4 x10e3 /uL 0.1-0. 9 normal Not Available [facility] ([facility]) [address] [place], [address], 09/17/2024 06:07:38 09/16/19 25 09/15/2024 CBC WITH DIFFE RENTI AL/PL ATELE T eos (absolute) 0.2 x10e3 /uL 0.0-0. 4 normal Not Available [facility] ([facility]) [address] [facility], [place], [address], 09/17/2024 06:07:38 09/16/19 25 09/15/2024 CBC WITH DIFFE RENTI AL/PL ATELE T baso (absolute) 0.1 x10e3 /uL 0.0-0. 2 normal Not Available [facility] ([facility]) [address] [place], [address], 09/17/2024 06:07:38 09/16/19 25 09/15/2024 CBC WITH DIFFE RENTI AL/PL ATELE T immature granulocytes 0 % not estab. Not Available [facility] ([facility]) [address] [place], [address], 09/17/2024 06:07:38 09/16/19 25 09/15/2024 CBC WITH DIFFE RENTI AL/PL ATELE T immature grans (abs) 0.0 x10e3 /uL 0.0-0. 1 Not Available [facility] ([facility]) [address] [facility], [place], [address], 09/17/2024 06:07:38 09/16/19 25 09/15/2024 CBC WITH DIFFE RENTI AL/PL ATELE T NRBC CHRONOMETER REPAIRER Not Available [facility] ([facility]) [address] [facility], [place], [address], 09/17/2024 06:07:38 09/16/19 25 09/15/2024 CBC WITH DIFFE RENTI AL/PL ATELE T hematology comments: CHRONOMETER REPAIRER Not Available [facility] ([facility]) [address] [facility], [place], [address], 09/17/2024 06:07:38 09/16/19 25 09/16/2024 COMP. METAB OLIC PANEL (14) glucose 88 mg/dL 70-99 normal Not Available [facility] ([facility]) [address] [facility], [place], [address], 09/17/2024 06:07:39 09/16/19 25 09/16/2024 COMP. METAB OLIC PANEL (14) BUN 19 mg/dL 6-24 normal Not Available [facility] ([facility]) [address] [facility], [place], [address], 09/17/2024 06:07:39 09/16/19 25 09/16/2024 COMP. METAB OLIC PANEL (14) creatinine 0.79 mg/dL 0.57-1 .00 normal Not Available [facility] ([facility]) [address] [place], [address], 09/17/2024 06:07:39 09/16/19 25 09/16/2024 COMP. METAB OLIC PANEL (14) eGFR 87 mL/mi n/1.7 3 >59 normal Not Available [facility] ([facility]) [address] [facility] [place], [address], 09/17/2024 06:07:39 09/16/19 25 09/16/2024 COMP. METAB OLIC PANEL (14) BUN/creatini ne ratio 24 9-23 above high normal Not Available [facility] ([facility]) [address] [facility] [place], [address], 09/17/2024 06:07:39 09/16/19 25 09/16/2024 COMP. METAB OLIC PANEL (14) sodium 142 mmol/ L 134-14 4 normal Not Available [facility] ([facility]) [address] [facility] [place], [address], 09/17/2024 06:07:39 09/16/19 25 09/16/2024 COMP. METAB OLIC PANEL (14) potassium 4.0 mmol/ L 3.5-5. 2 normal Not Available [facility] ([facility]) [address] [facility] [place], [address], 09/17/2024 06:07:39 09/16/19 25 09/16/2024 COMP. METAB OLIC PANEL (14) chloride 104 mmol/ L 96-106 normal Not Available [facility] ([facility]) [address] [facility] [place], [address], 09/17/2024 06:07:39 09/16/19 25 09/16/2024 COMP. METAB OLIC PANEL (14) carbon dioxide, total 24 mmol/ L 20-29 normal Not Available [facility] ([facility]) [address] [facility] [place], [address], 09/17/2024 06:07:39 09/16/19 25 09/16/2024 COMP. METAB OLIC PANEL (14) calcium 9.1 mg/dL 8.7-10 .2 normal Not Available [facility] ([facility]) [address] [facility] [place], [address], 09/17/2024 06:07:39 09/16/19 25 09/16/2024 COMP. METAB OLIC PANEL (14) protein, total 6.2 g/dL 6.0-8. 5 normal Not Available [facility] ([facility]) [address] [place], [address], 09/17/2024 06:07:39 09/16/19 25 09/16/2024 COMP. METAB OLIC PANEL (14) albumin 4.1 g/dL 3.8-4. 9 normal Not Available [facility] ([facility]) [address] [facility] [place], [address], 09/17/2024 06:07:39 09/16/19 25 09/16/2024 COMP. METAB OLIC PANEL (14) globulin, total 2.1 g/dL 1.5-4. 5 Not Available [facility] ([facility]) [address] [facility] [place], [address], 09/17/2024 06:07:39 09/16/19 25 09/16/2024 COMP. METAB OLIC PANEL (14) bilirubin, total 0.4 mg/dL 0.0-1. 2 normal Not Available [facility] ([facility]) [address] [facility] [place], [address], 09/17/2024 06:07:39 09/16/19 25 09/16/2024 COMP. METAB OLIC PANEL (14) alkaline phosphatase 43 IU/L 44-121 below low normal Not Available [facility] ([facility]) [address] [facility] [place], [address], 09/17/2024 06:07:39 09/16/19 25 09/16/2024 COMP. METAB OLIC PANEL (14) AST (SGOT) 20 IU/L 0-40 normal Not Available [facility] ([facility]) [address] [facility] [place], [address], 09/17/2024 06:07:39 09/16/19 25 09/16/2024 COMP. METAB OLIC PANEL (14) ALT (SGPT) 20 IU/L 0-32 normal Not Available [facility] ([facility]) [address] [facility] [place], [address], 09/17/2024 06:07:39 09/16/19 25 09/16/2024 LIPID PANEL cholesterol, total 247 mg/dL 100-19 9 above high normal Not Available [facility] ([facility]) [address] [place], [address], 09/17/2024 06:07:39 09/16/19 25 09/16/2024 LIPID PANEL triglyceride s 56 mg/dL 0-149 normal Not Available [facility] ([facility]) [address] [place], [address], 09/17/2024 06:07:39 09/16/19 25 09/16/2024 LIPID PANEL HDL cholesterol 93 mg/dL >39 normal Not Available [facility] ([facility]) [address] [place], [address], 09/17/2024 06:07:39 09/16/19 25 09/16/2024 LIPID PANEL VLDL cholesterol rebecca 9 mg/dL 5-40 Not Available [facility] ([facility]) [address] [place], [address], 09/17/2024 06:07:39 09/16/19 25 09/16/2024 LIPID PANEL LDL chol calc ([facility]) 145 mg/dL 0-99 above high normal Not Available [facility] ([facility]) [address] [place], [address], 09/17/2024 06:07:39 09/16/19 25 09/16/2024 LIPID PANEL LDL calc comment: CHRONOMETER REPAIRER Not Available [facility] ([facility]) [address] [place], [address], 09/17/2024 06:07:39 09/16/1909/16/2024 MAGNE SIUM magnesium 2.3 mg/dL 1.6-2. 3 normal Not Available [facility] ([facility]) [address] [facility], [place], [address], 09/17/2024 06:07:40 09/07/19 25 08/07/2023 MAMMO , scree aldair, digit al, bilat eral No observ ation record ed. abby Not Available 08/12 18:38:42 10/23/1910/21/2024 MAMMO , scree aldair, digit al, bilat eral PROCED URE: MM Digita l Mammo Screen ing INDICA TION: Screen ing. No known palpab le abnorm alitie s. COMPAR NAM: Dating back to 022 TECHNI QUE: Full-f ield digita l CC and MLO 3D tomosy nthesi s images of both breast s were acquir ed. Comput er-aid ed detect ion (CAD) was utiliz ed in the interp retati on of this study. DENSIT Y: The breast s are hetero geneou sly dense, which may obscur e small masses . FINDIN GS: No suspic ious masses , suspic ious microc alcifi cation s, or areas of kendra ectura l distor tion are seen in either breast to sugges t malign mehdi. IMPRES ANA: No mammog raphic eviden ce of malign mehdi. RECOMM ENDATI ON: Annual mammog raphic screen ing BI-RAD S: 1 (Negat jose francisco) Lay letter mailed to chino dave WSN: [id number] Orderi ng Physic cathy: Jossy Tomlinson Dictat ed By: Deshaun Hussein MD Dictat ed Date/T sumeet: 8:31 pm Review ed By: Deshaun Hussein MD Signed By: Deshaun Hussein MD Signed Date/T sumeet: 8:31 pm Transc ribed By: CSB Transc riptio n Date/T sumeet: 8:31 pm Birads : Kenzieen t Class: 5 [facility] [address] [place], [address], 10/24/2024 11:15:00 Result Notes Documentation Provider Name and Address Organization Details Recorded Time Mammo, Screening, Digital, Bilateral : PROCEDURE: MM Digital Mammo Screening INDICATION: Screening. No known palpable abnormalities. COMPARISON: Dating back to 05/13/2021 TECHNIQUE: Full-field digital CC and MLO 3D tomosynthesis images of both breasts were acquired. Computer-aided detection (CAD) was utilized in the interpretation of this study. DENSITY: The breasts are heterogeneously dense, which may obscure small masses. FINDINGS: No suspicious masses, suspicious microcalcifications, or areas of architectural distortion are seen in either breast to suggest malignancy. IMPRESSION: No mammographic evidence of malignancy. RECOMMENDATION: Annual mammographic screening BI-RADS: 1 (Negative) Lay letter mailed to patient WSN: [id number] Ordering Physician: Jossy Tomlinson Dictated By: Deshaun Hussein MD Dictated Date/Time: 10/22/24 8:31 pm Reviewed By: Deshaun Hussein MD Signed By: Deshaun Hussein MD Signed Date/Time: 10/22/24 8:31 pm Transcribed By: E[employer]ENCE [employer] Date/Time: 10/22/24 8:31 pm Birads: Patient Class: 5 Jossy Tomlinson, CHRONOMETER REPAIRER [address] [facility] [address], [address], [place] [facility] 10/24/2024 08:17:13 Problems Name Problem SNOMED Code Status Onset Date Resolution Date Notes Provider Name and Address Organization Details Recorded Time Carpal tunnel syndrome 53623090 Active 2024 Giselle webb null, [place] [facility] 18:40:12 Cyst of ovary 19607206 Active 2024 Giselle webb null, [place] [facility] 18:41:01 Hemifacial spasm 27400479 Active 2024 Giselle webb null, [place] [facility] 18:41:39 Pain of hip region 00016223 Active 2024 Giselle webb null, [place] [facility] 18:41:50 Pain of right knee region 7276382629841 05 Active 2024 Giselle webb null, [place] [facility] 18:42:06 Scoliosis deformity of spine 486876771 Active 2024 Giselle webb null, [place] [facility] 18:42:23 Temporomand ibular joint-pain- dysfunction syndrome 280909046 Active 2024 Giselle webb null, [place] [facility] 18:42:30 Dyspnea on exertion 10176518 Active 2024 Jossy Tomlinson NP [address] [facility], [facility] [address], [place], [place], [address], [place] [facility] 11:18:44 Daytime somnolence 748342007723 Active 2024 Jossy Tomlinson NP [address] [facility], [address], [place], [place], [address], [place] [facility] 11:25:41 Palpitation s 96832681 Active 2024 Jossy Tomlinson NP [address] [facility], [facility] [address], [place], [place], [address], [place] [facility] 14:12:23 Hyperlipide andrew 01105138 Active 2024 Jossy Tomlinson NP [address] [facility], [facility] [address], [place], [place], [address], [place] [facility] 14:13:27 Problem Notes None recorded. Procedures Surgical History Date Name Laterality Status Provider Name and Address Organization Details Recorded Time 08/07/19 24 Most Recent Mammogram completed Giselle Magallanes [place] - [facility] 09/06/2024 18:38:52 06/22/19 22 Date of Last Pap Smear completed Giselle Magallanes [place] [facility] 09/06/2024 18:39:36 07/13/19 20 Date of Last Colonoscopy completed Giselle Magallanes [place] [facility] 09/07/2024 11:08:14 Carpal Tunnel Surgery completed Giselle Magallanes [place] [facility] 09/06/2024 18:42:48 section completed Giselle Magallanes [facility] 09/06/2024 18:43:08 Imaging Results None recorded. Procedure Notes None recorded. Medical Equipment None Reported. Allergies No known drug allergies Medications Name Sig Start Date Stop Date Status Note LastModified by Organization Details LastModified Time estradiol-n orethindron e 0.05-0.14 mg/DAY TD tdsy Apply 1 patch twice a week by transderm al route. 09/07 completed Not Available Not Available Not Available desonide 0.05 % topical cream APPLY TO RASH TWICE DAILY ON EYELIDS FOR UP TO TWO WEEKS ONLY NEEDED. 09/07 completed Not Available Not Available Not Available CombiPatch 0.05 mg-0.14 mg/24 hr transdermal 1 PATCH APPLY TO SKIN TWICE PER WEEK 09/07 completed Not Available Not Available Not Available meloxicam 15 mg tablet TAKE 1 TABLET EVERY DAY BY ORAL ROUTE AFTER MEAL(S). active Not Available Not Available No t Available magnesium 200 mg tablet Take 1 tablet every day by oral route. active Not Available Not Available No t Available Botox q 3 months left eye for spasms active Not Available Not Available No t Available Woodruff 3 active Not Available Not Avail able Not Available 24Hour Allergy 10 mg tablet Take 1 tablet every day by oral route. active Not Available Not Available No t Available Xiidra 5 % eye drops in a dropperette INSTILL 1 DROP IN BOTH EYES TWICE A DAY 09/07 completed Not Available Not Available Not Available Vitals Date Recorded Body weight Body mass index (BMI) Body height Oxygen saturation Oxygen saturation in Arterial blood by Pulse oximetry Heart rate Systolic And Diastolic Provider Name and Address Organization Details Last Updated DateTime 5 13507.4 5 g 25.9 kg/m2 162.56 cm 97 % 97 % 76 /min 136/78 mm[Hg] Giselle webb [facility] 11:09:18 Social History Question Answer Notes LastModified by Organizat ion Details LastModified Time Tobacco Smoking Status Former Smoker Giselle Magallanes null, [facility] 09/07/2024 11:06:21 When Did You Quit Smoking? 16+yearssinc elastcigaret [facility] Information not available 09/07/2024 Sex: Unknown Functional Status None recorded. Mental Status None recorded. Family History Relationship Description Onset Age of this Age Resolved Age Notes LastModified by Organization Details LastModified Time Mother Hyperlipidem ia [email or web address] Not available 08/12 18:43:52 Mother Hypertensive disorder [email or web address] Not available 08/12 18:44:10 Mother Osteoporosis [email or web address] Not av ailable 09/06/2024 18:44:27 Father Hyperlipidem ia [email or web address] Not available 08/12 18:43:52 Father Hypertensive disorder [email or web address] Not available 08/12 18:44:10 Father Malignant neoplasm of prostate [email or web address] Not available 08/12 18:44:38 Father Malignant tumor of oropharynx [email or web address] Not available 18:44:56 Maternal Aunt Malignant tumor of breast [email or web address] Not available 08/12 18:45:14 Maternal Grandfather Coronary arterioscler osis [email or web address] Not available 08/12 18:45:39 Paternal Grandfather Coronary arterioscler osis [place] Not available 08/12 18:45:39 Maternal Grandmother Coronary arterioscler osis [place] Not available 08/12 18:45:39 Paternal Grandmother Coronary arterioscler osis [email or web address] Not available 08/12 18:45:47 Medical History No medical history recorded. Gynecological History Statement/Question Response Date of Last Pap Smear 06/21/2021 Most Recent Mammogram 08/07/2023 Date of Last Colonoscopy 07/13/2019 Obstetrics History GPAL:G 0 P 0 0 0 0 Immunizations Vaccine Type Date Status Note Provider Nam e and Address Organization Details Recorded Time Tdap 8 completed Giselle orr, MADELINE - [facility] 09/06/2024 18:46:19 Rabies - IM Diploid cell culture 4 completed Not Available [facility] 09/07/2024 10:57:43 Tdap 8 completed Not Available [facility] 09/07/2024 10:57:43 Influenza, MDCK, quadrivalent, PF 0 completed [facility] 09/07/[facility]24 10:57:43 Influenza, split virus, trivalent, preservative 3 completed Not Available [facility] 09/07/2024 10:57:43 Pneumococcal conjugate PCV20, polysaccharide [id number] conjugate, adjuvant, PF 3 completed Not Available [facility] 09/07/2024 10:57:43 Rabies - IM Diploid cell culture 4 completed Not Available [facility] 09/07/2024 10:57:43 COVID-19, mRNA, LNP-S, PF, 30 mcg/0.3 mL dose, vandana-sucrose 2 completed Not Available [facility] 09/07/2024 10:57:43 Rabies - IM Diploid cell culture 4 completed Not Available [facility] 09/07/2024 10:57:43 COVID-19, mRNA, LNP-S, PF, 30 mcg/0.3 mL dose 1 completed Not Available [facility] 09/07/2024 10:57:43 Rabies - IM Diploid cell culture 4 completed Not Available [facility] 09/07/2024 10:57:43 COVID-19, mRNA, LNP-S, PF, 30 mcg/0.3 mL dose 1 completed Not Available [facility] 09/07/2024 10:57:43 COVID-19, mRNA, LNP-S, PF, 30 mcg/0.3 mL dose 1 completed Not Available [facility] 09/07/2024 10:57:43 Past Encounters Encounter ID Performer Location Encounter Start Date Encounter Closed Date Diagnosis/Indication Diagnosis SNOMED-CT Code Diagnosis ICD10 Code Diagnosis Note [id number] Jossy Tomlinson NP Main Office [address] [place] [address],[facility] [address] [place] [phone] 09/07/2024 10:53:31 09/07/2024 11:39:17 Dyspnea on exertion 39988231 R06.09 Daytime somnolence 61129 45162 00 G47.19 Screening mammography 24 821244 Z12.31 First enco unter by subject 878808026 Z76.89 Medical history reviewed with her. Will proceed as below. Palpitations 06815240 R0 0.2 Hyperlipidemia 60735826 E78.5 Health Concerns Section Related Observation LastModified by Organization Detai ls LastModified Time None Recorded Concern Status LastModified by Organization Details LastModified Time None Recorded Advance Directives Directive None Recorded Payers Insurance Date Sequence Insurance Name Policy Number Policy Hu Covered Member ID Hu Member ID Guarantor Name 09/07/2024 1 [facility] [id number] Mame Bartlett [id number] Mame Bartlett Notes Date Note Type Note Provider Name and Address Organization Details Recorded Time 09/07/2024 text/html Mame Bartlett, 59-year-old female, here for new patient visit. Last PCP [facility]. - Experienced terrible menopause symptoms about a year ago; prescribed HRT but discontinued after less than a year due to lack of noticeable improvement.- Severe scoliosis with an S curve, started bothering after second child; mild pain with good and bad days; checked every 6 months for curve progression.- Taking meloxicam 15 mg daily for scoliosis-related pain; previously used ibuprofen and naproxen but caused stomach upset.- Recommended spinal fusion and celeste implantation about 6 months ago; hesitant due to fear.- Heart palpitations and increased windedness during 5-mile daily walks; concerned about scoliosis affecting heart and lungs.- X-rays showed no compression of internal organs.- History of high cholesterol; parents had high blood pressure and high cholesterol.- Snoring noticed by ; feels mucus in throat when tired; no nasal issues.- Had COVID four times; lingering lung congestion after colds, but no infections requiring antibiotics.- Not always feeling well-rested; experiences hot flashes and wakes up due to dog barking.- Experienced a bad period a month after stopping HRT; had cysts causing pain and bleeding for 12 days; underwent ultrasounds for cysts. Jossy Tomlinson, SCOTTY [address] [facility], [facility] [address], [place], [phone], [facility] - [facility] 09/07/2024 14:13:58 OBGyn Episode No OBEpisode recorded.
--- OUTSIDE RECORDS SUMMARY | 2024-11-01 15:03 | XMS_ITS | Clinical Summary ---
Author Organization [facility] Address [address] [address] Phone Care Team Providers Care Tool Builder Name Role Phone Meenu Abdalla MD Primary Care Provi kandy Allergies No known active allergies Medications fluticasone (FLOVENT HFA) 110 mcg/actuation inhaler Inhale 2 puffs into the lungs 2 (two) times a day as needed. 02/02/2015 Active fluticasone propionate (FLONASE) 50 mcg/actuation nasal spray 21 spray in each nostril Nasally Once a day 02/06/2014 Active albuterol (PROAIR HFA) 90 mcg/actuation inhaler Inhale 2 puffs into the lungs every 4 (four) hours as needed. 12/10/2012 Active Active Problems No known active problems Family History Medical History Relation Comments Cancer Father 2 Hypertension Father 2 Hypertension Mother 2 Relation Status Comments Father 1 Father 2 Mother 1 Mother 2 Social History Tobacco Use Types Packs/Day Years Used Date Smoking Tobacco: Never Smokeless Tobacco: Never Alcohol Use Standard Drinks/Week Comments Yes 0 (1 standard drink = 0.6 oz pur e alcohol) 2 drinks a week Education Answer Date Recorded Are you interested in more education? Not on rosaura e 08/07/2022 Are you concerned about learning? Not on file 08/07/2022 No 08/07/2022 No 08/07/2022 Digital Access Answer Date Recorded No 09/08/2022 No 09/08/2022 Reliable internet access at home? Not on file 09/08/2022 Device with a working camera? Not on file Comments Unknown Sex and Gender Information Value Date Recorded Sex Assigned at Not on file Legal Sex Female 7:17 PM EST Gender Identity Not on file Sexual Orientation Not on file Last Filed Vital Signs Vital Sign Reading Time Taken Comments Blood Pressure 132/76 06/11/2020 10:13 AM EST Pulse 72 06/11/2020 10:13 AM EST Temperature 37.6 C (99.6 F) 06/11/2020 10:13 AM EST Respiratory Rate - - Oxygen Saturation 98% 06/11/2020 10:13 AM EST Inhaled Oxygen Concentration - - Weight 63.5 kg (140 lb) 06/11/2020 10:13 AM EST Height 165.1 cm (5' 5 ) 06/11/2020 10:13 AM EST Body Mass Index 23.3 06/11/2020 10:13 AM EST Plan of Treatment Health Maintenance Due Date Last Done Comments LIPID PANEL 1967 DEPRESSION SCREENING 1979 HEPATITIS C SCREENING 08/17/1985 HIV ONE-TIME SCREENING (18-65 YEARS) 08/17/1985 COLOGUARD 08/17/2012 COLONOSCOPY 08/17/2012 COLORECTAL CANCER SCREENING 08/17/2012 FIT TEST 08/17/2012 FOBT 08/17/2012 SIGMOIDOSCOPY 08/17/2012 VIRTUAL COLONOSCOPY 08/17/2012 ZOSTER VACCINES (1 of 2) 08/17/2017 MAMMOGRAM 10/06/2018 10/06/2016 PAP SMEAR 04/03/2019 04/03/2016 COVID-19 VACCINE ( season) 2023 10/30/2021, 02/17/2021, 07/13/2020, Additional history exists Adult Td,Tdap Booster 03/24/2028 03/24/2018, 008 PNEUMOCOCCAL VACCINES (50+ years) Completed 05/14/2022 SMOKING STATUS SCREENING (Once After 26 Yrs) Completed 07/30/2022 HEPATITIS A VACCINES Aged Out No long er eligible based on patient's age to complete this topic HIB VACCINES Aged Out No longer eligi ble based on patient's age to complete this topic MENINGOCOCCAL VACCINES (ACWY) Aged Out No longer eligible based on patient's age to complete this topic MENINGOCOCCAL VACCINES (B) Aged Out N o longer eligible based on patient's age to complete this topic Medical Devices Not on file Insurance [facility] Care Teams Tool Builder Relationship Specialty Start Date End Date eMenu Abdalla MD [address] [place] [phone] PCP - General 08/27/22 Additional Source Comments The information contained in this document represents components of the legal health record. It is not the complete legal health record.[facility]
== END 2024-11-01 14:26 | disposition home or self-care (01) ==
LOC: HO.HSMS 13:50
PROVIDERS: Visit Provider Psychiatry & Neurology Neurology
DX: G51.32 Clonic hemifacial spasm, left (principal)
CPT/HCPCS: 64612; 99211

== ENCOUNTER → 2024-11-01 13:49 | Outpatient (BNVA) | payer OTHER, SELFPAY | PROVIDERS: Visit Provider Psychiatry & Neurology Neurology | DX: G51.32 Clonic hemifacial spasm, left (principal) | CPT/HCPCS: 64612; J0585 ==

== ENCOUNTER 2025-02-07 15:34 | Outpatient (AMB) | payer OTHER, SELFPAY ==
[2025-02-07 15:34] VITALS: BP 140/82; PULSE 69; O2SAT 97; BMI 24.2
--- NOTE | 2025-02-07 15:34 | A.OFFVIS_ITS ---
Vital Signs 02/07/25 15:34 Height 5 ft 4 in Weight 141 lb 2 oz BMI 24.2 BP 140/82 H Blood Pressure Location Rt brachial Position Sitting Pulse 69 Pulse Source Pulse Oximeter Pulse Oximetry (%) 97 Oxygen Delivery Method Room Air Intake Visit Reasons: Botox Intake Note: Botox 100 Biological Sciences Professor Required: No Accompanied by: Self / Same As Patient Allergies No Known Allergies Allergy (Verified 02/07/25 15:34) Medication List - Last Reconciled 02/07/25 by Courtney Locke MD magnesium 200 mg PO DAILY meloxicam 15 mg PO DAILY eamac-5b-mdl-epa-fish oil 1,000-1,400 mg caps PO onabotulinumtoxinA (Botox) 100 units IM [id number] HPI Comments Details: ? 59y/o female comes for treatment with botox .Increase in spasm in her left side of face since last visit. ??? side effects were explained again and patient agreed to the procedure . - side effects include increased weakness , droopy eyelids weakness of facial muscles etc. ??? Botulinum toxin type A lot no [id number] expiration Feb 2027 was diluted with 1 cc of normal saline at a concentration of 10units in 0.1cc. ??? Muscles injected - L lateral canthus 20 units ??? R lateral canthus 10 units ? Left lateral lower eyelid - 15 units Left medieal lower eyelid 5 units ? Procerus 5 units ? Total used 55units ??? Discarded-45 units PFSH Medical History Numbness and tingling in left hand Scoliosis Chronic headaches Surgical History History of carpal tunnel surgery H/O: Family History Father Cancer HTN (hypertension) Hyperlipidemia Mother HTN (hypertension) Social History Household Members: Spouse and Family Household Members Other:: Spouse, child, dog Alcohol intake: current Alcohol intake frequency: a few times a week Alcohol type: wine Patient Tobacco Use Status: Never used Tobacco Physical Exam Vital Signs: Last Vital Signs Pulse 69 02/07/25 15:34 BP 140/82 H 02/07/25 15:34 Pulse Ox 97 02/07/25 15:34 Oxygen Delivery Method Room Air 02/07/25 15:34 BMI result Body Mass Index 24.2 HEENT Other: Mild left hemifacial spasm Office Procedures Botulinum toxin Injection 10830 - Facial Nerve Procedure code (CPT) selection complete Office Meds onabotulinumtoxinA 100 unit solution for injection Performing Provider: Courtney Locke MD Performing Location: [facility] Administered by: Courtney Locke MD on 02/08/25 12:38 Dose Route Admin Location Dispensed Lot Number Expiration Date [facility] Branding Machine Operator 55 unit subcut 100 units [id number] [employer]/ BOTOX Total Dispensed Waste 100 units 45 % Comments: see HPI Assessment & Plan Assessment & Plan (1) Hemifacial spasm of left side of face: Code(s): G51.32 - Clonic hemifacial spasm, left Category: Medical Plan Patient tolerated the procedure well. She will call with any side effects. MRI brain with jaylon - vascular loop around left trigeminal nerve - will consider Neurosurgery ref if patient does not have agood response to Botox Orders: Orders AMB Botulinum toxin Injection 02/07/25 G51.32 - Clonic hemifacial spasm, left Coding Level of Care Code Est Pt Level 1 (55297) Diagnoses Hemifacial spasm of left side of face G51.32 CPT Codes Botox Injection - Botox 2: 08280 - Facial Nerve ([id number])
--- OUTSIDE RECORDS SUMMARY | 2025-02-07 19:54 | XMS_ITS | Clinical Summary ---
Author Organization [facility] Address [address] [address] Phone Care Team Providers Care Piped Pocket Machine Operator Name Role Phone Meenu Abdalla MD Primary [...] MAMMOGRAM 10/06/2018 10/06/2016 PAP SMEAR 04/03/2019 04/03/2016 INFLUENZA VACCINE (#1) 2024 , 01/15/2020, 01/24/2010 COVID-19 VACCINE ( season) 2024 10/30/2021, 02/17/2021, 07/13/2020, Additional history exists Adult Td,Tdap Booster 03/24/2028 03/24/2018, 008 RSV VACCINE (1 - 1-dose 75+ series) 08/17/2042 PNEUMOCOCCAL VACCINES (50+ years) Completed 05/14/2022 SMOKING [...] topic Medical Devices Not on file Insurance [facility] Care Teams Piped Pocket Machine Operator Relationship Specialty Start Date End Date Meenu Abdalla MD [address] [place] [phone] PCP - General 08/27/22 Additional Source Comments The information contained in this document represents components of the legal health record. It is not the complete legal health record.[facility]
--- OUTSIDE RECORDS SUMMARY | 2025-02-07 19:54 | XMS_ITS | Data Portability ---
Author Organization [place] [facility], [employer] Address [address] [place] [address] Assessment Encounter Date Assessment Date Assessment LastModified [...] Modified Time Details Appointments Annual Exam 2024 02:40P M Jossy Tomlinsno, DNP Not available Not available Not available Lab TSH + free T4, serum 2024 025 [place], [address] [place], [address], 09/17/2024 06:07:38 magnesium , serum or plasma 2024 025 [facility], [address] [place], [address], 09/17/2024 06:07:40 CMP, serum or plasma 2024 025 [facility], [address] [place], [address], 09/17/2024 06:07:39 lipid panel, serum 2024 025 [facility], [address], [place], [address], 09/17/2024 06:07:39 CBC w/ auto diff 2024 025 [facility], [address] [place], [address], 09/17/2024 06:07:38 iron + TIBC + ferritin, serum 2024 025 [facility], [address] [place], [address], 09/17/2024 06:07:37 Referral None recorded. Procedures holter monitor placement (PROC) - 10 ZIO XT 2024 025 [email or web address] [facility], [place], [address], 09/22/2024 10:28:50 treadmill nuclear stress test (PROC) [address] [facility], [address] [place], [address], 11/14/2024 08:22:39 Surgeries None recorded. Imaging MAMMO, screening , digital, bilateral [address] [facility] Scheduling, [address], [place], [address], 09/22/2024 10:27:16 Medication Orders None recorded. Patient TargetsNo targets recorded. Patient InstructionsNo instructions recorded. Reason for Referral None Reported. Results Created Date Observation Date Name Description Value Unit Range Abnormal Flag Note LastModifiedBy Organization Detail LastModifiedTime 09/16/1909/16/2024 FE+TI BC+FE R iron bind.cap.(TI BC) 258 ug/dL 250-45 0 normal Not Available [facility] ([facility]) [address] [place], [address], 09/17/2024 06:07:37 09/16/19 25 09/16/2024 FE+TI BC+FE R UIBC 159 ug/dL 131-42 5 normal Not Available [facility] ([facility]) [address] [place], [address], 09/17/2024 06:07:37 09/16/19 25 09/16/2024 FE+TI BC+FE R iron 99 ug/dL 27-159 normal Not Available [facility] ([facility]) [address] [place], [address], 09/17/2024 06:07:37 09/16/19 25 09/16/2024 FE+TI BC+FE R iron saturation 38 % 15-55 normal Not Available [facility] ([facility]) [address] [place], [address], 09/17/2024 06:07:37 09/16/19 25 09/16/2024 FE+TI BC+FE R ferritin 47 NG/mL 15-150 normal Not Available [facility] ([facility]) [address] [place], [address], 09/17/2024 06:07:37 09/16/19 25 09/16/2024 TSH+F REE T4 TSH 3.300 uIU/m L 0.450- 4.500 normal Not Available [facility] ([facility]) [address] [place], [address], 09/17/2024 06:07:38 09/16/19 25 09/16/2024 TSH+F REE T4 T4,free(dire ct) 1.38 NG/dL 0.82-1 .77 normal Not Available [facility] ([facility]) [address] [place], [address], 09/17/2024 06:07:38 09/16/19 25 09/15/2024 CBC WITH DIFFE RENTI AL/PL ATELE T WBC 5.5 x10e3 /uL 3.4-10 .8 normal Not Available [facility] ([facility]) [address] [place], [address], 09/17/2024 06:07:38 09/16/19 25 09/15/2024 CBC WITH DIFFE RENTI AL/PL ATELE T RBC 4.34 x10e6 /uL 3.77-5 .28 normal Not Available [facility] ([facility]) [address] [place], [address], 09/17/2024 06:07:38 09/16/19 25 09/15/2024 CBC WITH DIFFE RENTI AL/PL ATELE T hemoglobin 13.3 g/dL 11.1-1 5.9 normal Not Available [facility] ([facility]) [address] [place], [address], 09/17/2024 06:07:38 09/16/19 25 09/15/2024 CBC WITH DIFFE RENTI AL/PL ATELE T hematocrit 40.7 % 34.0-4 6.6 normal Not Available [facility] ([facility]) [address] [facility], [place], [address], 09/17/2024 06:07:38 09/16/19 25 09/15/2024 CBC WITH DIFFE RENTI AL/PL ATELE T MCV 94 fL 79-97 normal Not Available [facility] ([facility]) [address] [facility], [place], [address], 09/17/2024 06:07:38 09/16/19 25 09/15/2024 CBC WITH DIFFE RENTI AL/PL ATELE T MCH 30.6 pg 26.6-3 3.0 normal Not Available [facility] ([facility]) [address] [facility], [place], [address], 09/17/2024 06:07:38 09/16/19 25 09/15/2024 CBC WITH DIFFE RENTI AL/PL ATELE T MCHC 32.7 g/dL 31.5-3 5.7 normal Not Available [facility] ([facility]) [address] [place], [address], 09/17/2024 06:07:38 09/16/19 25 09/15/2024 CBC WITH DIFFE RENTI AL/PL ATELE T RDW 13.0 % 11.7-1 5.4 Not Available [facility] ([facility]) [address] [place], [address], 09/17/2024 06:07:38 09/16/19 25 09/15/2024 CBC WITH DIFFE RENTI AL/PL ATELE T platelets 195 x10e3 /uL 150-45 0 normal Not Available [facility] ([facility]) [address] [place], [address], 09/17/2024 06:07:38 09/16/19 25 09/15/2024 CBC WITH DIFFE RENTI AL/PL ATELE T neutrophils 57 % not estab. normal Not Available [facility] ([facility]) [address] [facility], [place], [address], 09/17/2024 06:07:38 09/16/19 25 09/15/2024 CBC WITH DIFFE RENTI AL/PL ATELE T lymphs 31 % not estab. normal Not Available [facility] ([facility]) [address] [facility], [place], [address], 09/17/2024 06:07:38 09/16/19 25 09/15/2024 CBC WITH DIFFE RENTI AL/PL ATELE T monocytes 7 % not estab. normal Not Available [facility] ([facility]) [address] [facility], [place], [address], 09/17/2024 06:07:38 09/16/19 25 09/15/2024 CBC WITH DIFFE RENTI AL/PL ATELE T eos 4 % not estab. normal Not Available [facility] ([facility]) [address] [facility], [place], [address], 09/17/2024 06:07:38 09/16/19 25 09/15/2024 CBC WITH DIFFE RENTI AL/PL ATELE T basos 1 % not estab. normal Not Available [facility] ([facility]) [address] [facility], [place], [address], 09/17/2024 06:07:38 09/16/19 25 09/15/2024 CBC WITH DIFFE RENTI AL/PL ATELE T immature cells JACQUARD CARD CUTTER Not Available [facility] ([facility]) [address] [facility], [place], [address], 09/17/2024 06:07:38 09/16/19 25 09/15/2024 CBC WITH DIFFE RENTI AL/PL ATELE T neutrophils (absolute) 3.2 x10e3 /uL 1.4-7. 0 normal Not Available [facility] ([facility]) [address] [facility], [place], [address], 09/17/2024 06:07:38 09/16/19 25 09/15/2024 CBC WITH DIFFE RENTI AL/PL ATELE T lymphs (absolute) 1.7 x10e3 /uL 0.7-3. 1 normal Not Available [facility] ([facility]) [address] [facility], [place], [address], 09/17/2024 06:07:38 09/16/19 25 09/15/2024 CBC WITH DIFFE RENTI AL/PL ATELE T monocytes(ab solute) 0.4 x10e3 /uL 0.1-0. 9 normal Not Available [facility] ([facility]) [address] [place], [address], 09/17/2024 06:07:38 09/16/19 25 09/15/2024 CBC WITH DIFFE RENTI AL/PL ATELE T eos (absolute) 0.2 x10e3 /uL 0.0-0. 4 normal Not Available [facility] ([facility]) [address] [facility], [place], [address], 09/17/2024 06:07:38 09/16/19 25 09/15/2024 CBC WITH DIFFE RENTI AL/PL ATELE T baso (absolute) 0.1 x10e3 /uL 0.0-0. 2 normal Not Available [facility] ([facility]) [address] [place], [address], 09/17/2024 06:07:38 09/16/19 25 09/15/2024 CBC WITH DIFFE RENTI AL/PL ATELE T immature granulocytes 0 % not estab. Not Available [facility] ([facility]) [address] [place], [address], 09/17/2024 06:07:38 09/16/19 25 09/15/2024 CBC WITH DIFFE RENTI AL/PL ATELE T immature grans (abs) 0.0 x10e3 /uL 0.0-0. 1 Not Available [facility] ([facility]) [address] [facility], [place], [address], 09/17/2024 06:07:38 09/16/19 25 09/15/2024 CBC WITH DIFFE RENTI AL/PL ATELE T NRBC JACQUARD CARD CUTTER Not Available [facility] ([facility]) [address] [facility], [place], [address], 09/17/2024 06:07:38 09/16/19 25 09/15/2024 CBC WITH DIFFE RENTI AL/PL ATELE T hematology comments: JACQUARD CARD CUTTER Not Available [facility] ([facility]) [address] [facility], [place], [address], 09/17/2024 06:07:38 09/16/19 25 09/16/2024 COMP. METAB OLIC PANEL (14) glucose 88 mg/dL 70-99 normal Not Available [facility] ([facility]) [address] [facility], [place], [address], 09/17/2024 06:07:39 09/16/19 25 09/16/2024 COMP. METAB OLIC PANEL (14) BUN 19 mg/dL 6-24 normal Not Available [facility] ([facility]) [address] [facility], [place], [address], 09/17/2024 06:07:39 09/16/19 25 09/16/2024 COMP. METAB OLIC PANEL (14) creatinine 0.79 mg/dL 0.57-1 .00 normal Not Available [facility] ([facility]) [address] [place], [address], 09/17/2024 06:07:39 09/16/19 25 09/16/2024 COMP. METAB OLIC PANEL (14) eGFR 87 mL/mi n/1.7 3 >59 normal Not Available [facility] ([facility]) [address] [facility] [place], [address], 09/17/2024 06:07:39 09/16/19 25 09/16/2024 COMP. METAB OLIC PANEL (14) BUN/creatini ne ratio 24 9-23 above high normal Not Available [facility] ([facility]) [address] [place], [address], 09/17/2024 06:07:39 09/16/19 25 09/16/2024 COMP. METAB OLIC PANEL (14) sodium 142 mmol/ L 134-14 4 normal Not Available [facility] ([facility]) [address] [facility] [place], [address], 09/17/2024 06:07:39 09/16/19 25 09/16/2024 COMP. METAB OLIC PANEL (14) potassium 4.0 mmol/ L 3.5-5. 2 normal Not Available [facility] ([place] [facility]) [address] [facility] [place], [address], 09/17/2024 06:07:39 09/16/19 25 09/16/2024 COMP. METAB OLIC PANEL (14) chloride 104 mmol/ L 96-106 normal Not Available [facility] ([facility] [facility]) [address] [facility] [place], [address], 09/17/2024 06:07:39 09/16/19 25 09/16/2024 COMP. METAB OLIC PANEL (14) carbon dioxide, total 24 mmol/ L 20-29 normal Not Available [facility] ([place] [facility]) [address] [facility] [place], [address], 09/17/2024 06:07:39 09/16/19 25 09/16/2024 COMP. METAB OLIC PANEL (14) calcium 9.1 mg/dL 8.7-10 .2 normal Not Available [facility] ([place] [facility]) [address] [place], [address], 09/17/2024 06:07:39 09/16/19 25 09/16/2024 COMP. METAB OLIC PANEL (14) protein, total 6.2 g/dL 6.0-8. 5 normal Not Available [facility] ([facility]) [address] [place], [address], 09/17/2024 06:07:39 09/16/19 25 09/16/2024 COMP. METAB OLIC PANEL (14) albumin 4.1 g/dL 3.8-4. 9 normal Not Available [facility] ([facility]) [address] [place], [address], 09/17/2024 06:07:39 09/16/19 25 09/16/2024 COMP. METAB OLIC PANEL (14) globulin, total 2.1 g/dL 1.5-4. 5 Not Available [facility] ([facility]) [address] [place], [address], 09/17/2024 06:07:39 09/16/19 25 09/16/2024 COMP. METAB OLIC PANEL (14) bilirubin, total 0.4 mg/dL 0.0-1. 2 normal Not Available [facility] ([facility]) [address] [place], [address], 09/17/2024 06:07:39 09/16/19 25 09/16/2024 COMP. METAB OLIC PANEL (14) alkaline phosphatase 43 IU/L 44-121 below low normal Not Available [facility] ([facility]) [address] [place], [address], 09/17/2024 06:07:39 09/16/19 25 09/16/2024 COMP. METAB OLIC PANEL (14) AST (SGOT) 20 IU/L 0-40 normal Not Available [facility] ([place] [facility]) [address] [facility] [place], [address], 09/17/2024 06:07:39 09/16/19 25 09/16/2024 COMP. METAB OLIC PANEL (14) ALT (SGPT) 20 IU/L 0-32 normal Not Available [facility] ([facility]) [address] [facility] [place], [address], 09/17/2024 06:07:39 09/16/19 25 09/16/2024 LIPID PANEL cholesterol, total 247 mg/dL 100-19 9 above high normal Not Available [facility] ([facility]) [address] [place], [address], 09/17/2024 06:07:39 09/16/19 25 09/16/2024 LIPID PANEL triglyceride s 56 mg/dL 0-149 normal Not Available [facility] ([facility]) [address] [place], [address], 09/17/2024 06:07:39 09/16/19 25 09/16/2024 LIPID PANEL HDL cholesterol 93 mg/dL >39 normal Not Available [facility] ([facility]) [address] [place], [address], 09/17/2024 06:07:39 09/16/19 25 09/16/2024 LIPID PANEL VLDL cholesterol rebecca 9 mg/dL 5-40 Not Available [facility] ([facility]) [address] [place], [address], 09/17/2024 06:07:39 09/16/19 25 09/16/2024 LIPID PANEL LDL chol calc ([facility]) 145 mg/dL 0-99 above high normal Not Available [facility] ([facility]) [address] [place], [address], 09/17/2024 06:07:39 09/16/19 25 09/16/2024 LIPID PANEL LDL calc comment: JACQUARD CARD CUTTER Not Available [facility] ([facility]) [address] [facility] [place], [address], 09/17/2024 06:07:39 09/16/1909/16/2024 MAGNE SIUM magnesium 2.3 mg/dL 1.6-2. 3 normal Not Available [facility] ([facility]) [address] [facility], [place], [address], 09/17/2024 06:07:40 09/07/19 25 08/07/2023 MAMMO , [...] Lay letter mailed to chino dave WSN: [id number] Orderi ng Physic cathy: Jossy Tomlinson Dictat ed By: Deshaun Hussein MD Dictat ed Date/T sumeet: 8:31 pm Review ed By: Deshaun Hussein MD Signed By: Deshaun Hussein MD Signed Date/T sumeet: 8:31 pm Transc ribed By: CSB Transc riptio n Date/T sumeet: 8:31 pm Birads : Kenzieen t Class: 5 [facility] (Out[facility] Imaging) [address] [facility], [place], [address], 11/09/2024 07:12:52 11/05/1907/21/2024 imagi ng/di agnos tic resul t No observ ation record ed. [facility] [address] [facility] [address], [place], [address], 11/09/2024 07:12:52 Result Notes Documentation Provider Name and Address [...] (Negative) Lay letter mailed to patient WSN: [id number] Ordering Physician: Jossy Tomlinson Dictated By: Deshaun Hussein MD Dictated Date/Time: 10/22/24 8:31 pm Reviewed By: Deshaun Hussein MD Signed By: Deshaun Hussein MD Signed Date/Time: 10/22/24 8:31 pm Transcribed By: [employer] Field Engineer Date/Time: 10/22/24 8:31 pm Birads: Patient Class: 5 Jossy Tomlinson, JACQUARD CARD CUTTER [address] [facility], [facility] [address], [place], [address], [place] [facility] 10/24/2024 08:17:13 Problems Name Problem SNOMED Code Status Onset Date Resolution Date Notes Provider Name and Address Organization Details Recorded Time Carpal tunnel syndrome 20183509 Active 2024 Giselle orr, [place] - [facility] 18:40:12 Cyst of ovary 13974509 Active 2024 Giselle webb null, [place] - [facility] 18:41:01 Hemifacial spasm 16660824 Active 2024 Giselle webb null, [place] [facility] 18:41:39 Pain of hip region 10773026 Active 2024 Giselle webb null, [place] [facility] 18:41:50 Pain of right knee region 8209382247882 05 Active 2024 Giselle webb null, [place] [facility] 18:42:06 Scoliosis deformity of spine 698290847 Active 2024 Giselle webb null, [place] [facility] 18:42:23 Temporomand ibular joint-pain- dysfunction syndrome 849753384 Active 2024 Giselle webb null, [place] [facility] 18:42:30 Dyspnea on exertion 39615325 Active 2024 Jossy Tomlinson, SCOTTY [address] [facility], [place], [address], [place] [facility] 11:18:44 Daytime somnolence 589670001807 Active 2024 Jossy Tomlinson NP [address] [facility], [place], [address], [place] [facility] 11:25:41 Palpitation s 95605593 Active 2024 Jossy Tomlinson NP [address] [facility], [facility] [address], [place], [address], [place] [facility] 5 14:12:23 Hyperlipide andrew 25579801 Active 2024 Jossy Tomlinson NP [address] [facility], [facility] [address], [place], [place], [address], [place] [facility] 14:13:27 Problem Notes None recorded. Procedures Surgical History Date Name Laterality Status Provider Name and Address Organization Details Recorded Time 08/07/19 24 Most Recent Mammogram completed Giselle Magallanes [place] - [facility] 09/06/2024 18:38:52 06/22/19 22 Date of Last Pap Smear completed Giselle Magallanes [facility] 09/06/2024 18:39:36 07/13/19 20 Date of Last Colonoscopy completed Giselle Magall[facility] 09/07/2024 11:08:14 Carpal Tunnel Surgery completed Giselle Magallanes [facility] 09/06/2024 18:42:48 section completed Giselle Magallanes [facility] 09/06/2024 18:43:08 Imaging Results None recorded. Procedure [...] Not Available Not Available No t Available [place] 3 active Not Available Not Avail able [...] and Address Organization Details Last Updated DateTime 99721.4 5 g 25.9 kg/m2 162.56 cm 97 % 97 % 76 /min 136/78 mm[Hg] Giselle webb [facility] 11:09:18 Social History Question Answer Notes LastModified by Organizat ion Details LastModified Time Tobacco Smoking Status Former Smoker [facility] 09/07/2024 11:06:21 When Did You Quit Smoking? 16+yearssinc elastcigaret te [email or web address] Information not available 09/07/2024 Sex: Unknown Functional [...] [email or web address] Not available 08/12 18:44:38 Father Malignant neoplasm of oropharynx [email or web address] Not available 18:44:56 Maternal Aunt Malignant neoplasm of breast [email or web address] Not available 08/12 18:45:14 [...] Organization Details Recorded Time Tdap 8 completed [facility] 09/06/2024 18:46:19 Rabies - IM Diploid cell culture 4 completed Not Available [facility] 09/07/2024 10:57:43 Tdap 8 completed Not Available [facility] 09/07/2024 10:57:43 Influenza, MDCK, quadrivalent, PF 0 completed Not Available [facility] 09/07/2024 10:57:43 Influenza, split virus, trivalent, preservative 3 completed Not Available [facility] 09/07/2024 10:57:43 Pneumococcal conjugate PCV20, polysaccharide [id number] conjugate, adjuvant, PF 3 completed Not Available [facility] 09/07/2024 10:57:43 Rabies - IM Diploid cell culture 4 completed Not Available [facility] 09/07/2024 10:57:43 COVID-19, mRNA, LNP-S, PF, 30 mcg/0.3 mL dose, vandana-sucrose 2 completed Not Available [facility] 09/07/2024 10:57:43 Rabies - IM Diploid cell culture 4 completed Not Available [facility] 09/07/2024 10:57:43 COVID-19, mRNA, LNP-S, PF, 30 mcg/0.3 mL dose 1 completed Not Available [facility] 09/07/2024 10:57:43 Rabies - IM Diploid cell culture 4 completed Not Available [facility] 09/07/2024 10:57:43 COVID-19, mRNA, LNP-S, PF, 30 mcg/0.3 mL dose 1 completed Not Available [facility] 09/07/2024 10:57:43 COVID-19, mRNA, LNP-S, PF, 30 mcg/0.3 mL dose 1 completed Not Available [facility] 09/07/2024 10:57:43 Past Encounters Encounter ID Performer Location Encounter Start Date Encounter Closed Date Diagnosis/Indication Diagnosis SNOMED-CT Code Diagnosis ICD10 Code Diagnosis IMO Codes Diagnosis Note [id number] Jossy Tomlinson NP Main Office [address] [place] [address] [place] [address] 09/07/2024 10:53:31 09/07/2024 11:39:17 Dyspnea on exertion 38792481 R06.09 437808 Daytime somnolence 17025 50564 00 G47.19 767600 Screening mammography 24 297634 Z12.31 [id number] First enco unter by subject 895907595 Z76.89 20345510 Medical history reviewed with her. Will proceed as below. Palpitations 57165577 R0 0.2 79052 Hyperlipidemia 04130161 E78.5 63632261 Health Concerns Section Related Observation LastModified by Organization Detai ls LastModified Time None Recorded Concern Status LastModified by Organization Details LastModified Time None Recorded Advance Directives Directive None Recorded Payers Insurance Date Sequence Insurance Name Policy Number Policy Hu Covered Member ID Hu Member ID Guarantor Name 09/07/[address] [place] [address] [id number] Mame Bartlett [id number] Mame Bartlett Notes Date Note Type Note Provider Name and Address Organization Details Recorded Time 09/07/2024 text/html ROS as noted in the HPI Mame Bartlett, 59-year-old female, here for new [...] ultrasounds for cysts. Jossy Tomlinson, SCOTTY [address], [place], [address], [place] [facility] 09/07/2024 14:13:58 OBGyn Episode No OBEpisode recorded.
== END 2025-02-14 08:29 | disposition home or self-care (01) ==
LOC: HO.HSMS 15:35
PROVIDERS: Visit Provider Psychiatry & Neurology Neurology
DX: G51.32 Clonic hemifacial spasm, left (principal)
CPT/HCPCS: 64612

== ENCOUNTER → 2025-02-07 15:34 | Outpatient (BNVA) | payer OTHER, SELFPAY | PROVIDERS: Visit Provider Psychiatry & Neurology Neurology | DX: G51.32 Clonic hemifacial spasm, left (principal) | CPT/HCPCS: 64612; 99211; J0585 ==